=== PATIENT | female | born 1990 | race Caucasian/White ===

== ENCOUNTER 2018-11-11 22:34 | Emergency (ER) | payer BC ==
[2018-11-11] MEDS ORDERED: Ondansetron 4 MG/2 ML SDV IVPUSH ONE (23:25)
[2018-11-11] MEDS ORDERED: Lactated Ringers 1,000 ML IV ONE (23:25)
--- NOTE | 2018-11-11 23:30 | EDM.PDOC ---
ED HPI GENERAL MEDICAL PROBLEM - General Chief Complaint: Gastrointestinal Problem Stated Complaint: THROWING UP BLOOD Time Seen by Provider: 11/11/18 23:22 - History of Present Illness INITIAL COMMENTS - FREE TEXT/NARRATIVE: 38-year-old female presents emergency room at 34 weeks with some vomiting with vomitus contained some blood. Patient is a 1 para 0 now at 34 weeks she has been feeling ill since about 6:00 this evening a couple hours ago she vomited and it had some red streaking blood like material in it. She denies any abdominal pain or discomfort other than the discomfort associated with 34 week gestation. 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 Denies: Constipation, Diarrhea : Reports: Frequency. Denies: Discharge, Dysuria, Flank Pain, Hematuria Musculoskeletal: Reports: No Symptoms Skin: Reports: No Symptoms Neurological: Reports: No Symptoms ED EXAM - Physical Exam Exam: See Below General Appearance: Alert, No Apparent Distress Head: Atraumatic, Normocephalic Neck: Normal Inspection, Supple, Non-Tender, Full Range of Motion. No: Lymphadenopathy (L), Lymphadenopathy (R) Respiratory/Chest: No Respiratory Distress, Lungs Clear, Normal Breath Sounds Cardiovascular: Regular Rate, Rhythm, No Edema, No Murmur (Female) Exam: Other (OB nurse came down to do the monitoring also checked the cervix which is high long thick and closed.) Heart Tones: Present Movement: Active Extremities: Normal Inspection, No Pedal Edema Neurological: Alert, Oriented, Normal Cognition Course - Vital Signs Last Recorded V/S: Last Vital Signs Temp 36.3 C 11/11/18 22:35 Pulse 110 H 11/11/18 22:35 Resp 20 11/11/18 22:35 BP 109/67 11/11/18 22:35 Pulse Ox 100 11/11/18 22:35 - Orders/Labs/Meds Orders: Active Orders 24 hr Category Date Time Status INFLUENZA A+B AG SCREEN [RM] Stat Lab 11/12/18 00:22 Ordered URINALYSIS W/MICROSCOPIC [UA W/MICROSCOPIC] [URIN] Stat Lab 11/12/18 00:27 Results Labs: Laboratory Tests 11/11/18 11/11/18 11/12/18 Range/Units 22:56 22:56 00:27 WBC 10.51 H (3.98-10.04) K/mm3 RBC 4.20 (3.98-5.22) M/mm3 Hgb 12.3 (11.2-15.7) gm/L Hct 37.0 (34.1-44.9) % MCV 88.1 (79.4-94.8) fl MCH 29.3 (25.6-32.2) pg MCHC 33.2 (32.2-35.5) g/dl RDW Std Deviation 39.4 (36.4-46.3) fL Plt Count 193 (182-369) K/mm3 MPV 11.4 (9.4-12.3) fl Neutrophils % (Manual) 84 H (40-60) % Band Neutrophils % 0 (0-10) % Lymphocytes % (Manual) 9 L (20-40) % Atypical Lymphs % 0 % Monocytes % (Manual) 7 (2-10) % Eosinophils % (Manual) 0 L (0.7-5.8) % Basophils % (Manual) 0 L (0.1-1.2) Toxic Granulation 1+ slight Platelet Estimate Adequate Plt Morphology Comment Normal RBC Morph Comment Normal Sodium 138 (136-145) mEq/L Potassium 3.3 L (3.5-5.1) mEq/L Chloride 103 (98-107) mEq/L Carbon Dioxide 21 (21-32) mEq/L Anion Gap 17.3 H (5-15) BUN 12 (7-18) mg/dL Creatinine 0.7 (0.55-1.02) mg/dL Est Cr Clr Drug Dosing 117.39 mL/min Estimated GFR (MDRD) > 60 (>60) mL/min BUN/Creatinine Ratio 17.1 (14-18) Glucose 113 H (74-106) mg/dL Calcium 8.6 (8.5-10.1) mg/dL Total Bilirubin 0.2 (0.2-1.0) mg/dL AST 20 (15-37) U/L ALT 19 (14-59) U/L Alkaline Phosphatase 96 (46-116) U/L Total Protein 6.9 (6.4-8.2) g/dl Albumin 2.9 L (3.4-5.0) g/dl Globulin 4.0 gm/dL Albumin/Globulin Ratio 0.7 L (1-2) Urine Color Yellow (Yellow) Urine Appearance Clear (Clear) Urine pH 7.0 (5.0-8.0) Ur Specific [place] 1.025 (1.005-1.030) Urine Protein 1+ H (Negative) Urine Glucose (UA) Negative (Negative) Urine Ketones 4+ H (Negative) Urine Occult Blood Negative (Negative) Urine Nitrite Negative (Negative) Urine Bilirubin Negative (Negative) Urine Urobilinogen 0.2 (0.2-1.0) Ur Leukocyte Esterase Negative (Negative) Meds: Medications Discontinued Medications Generic Name Dose Route Start Last Admin Trade Name Freq PRN Reason Stop Dose Admin Lactated Ringer's 1,000 mls @ 999 mls/hr 11/11/18 23:25 11/11/18 23:31 Ringers, Lactated IV 11/12/18 00:25 999 mls/hr .BOLUS ONE Administration Ondansetron HCl 4 mg 11/11/18 23:25 11/11/18 23:32 Zofran IVPUSH 11/11/18 23:26 4 mg ONETIME ONE Administration Potassium Chloride 40 meq 11/12/18 00:15 11/12/18 00:26 Klor-Con M20 PO 11/12/18 00:16 40 meq ONETIME ONE Administration - Re-Assessments/Exams Free Text/Narrative Re-Assessment/Exam: 11/12/18 00:47 She was doing much better here than she was when she came in fluids help Zofran helps she's keeping by mouth fluids down without difficulty. She had a reactive NST. Case discussed with Dr. Godfrey patient will be discharged home with some Mikayla and will follow up with Dr. Stevens on Monday as scheduled. Departure - Departure Time of Disposition: 00:48 Disposition: Home, Self-Care 01 Clinical Impression: Gastroenteritis, Third trimester - Discharge Information Referrals: Hieu Stevens MD [Primary Care Provider] - Forms: ED Department Discharge Additional Instructions: Return to labor and delivery or the emergency room with any questions problems worsening symptoms. Uses Zofran as needed for nausea and vomiting. Clear liquid diet for the next 24 hours then slowly advance as tolerated. Follow-up with Dr. Stevens on Monday as scheduled. - My Orders Last 24 Hours: My Active Orders 11/12/18 00:22 INFLUENZA A+B AG SCREEN [RM] Stat 11/12/18 00:27 URINALYSIS W/MICROSCOPIC [UA W/MICROSCOPIC] [URIN] Stat - Assessment/Plan Last 24 Hours: My Active Orders 11/12/18 00:22 INFLUENZA A+B AG SCREEN [RM] Stat 11/12/18 00:27 URINALYSIS W/MICROSCOPIC [UA W/MICROSCOPIC] [URIN] Stat
[2018-11-12] MEDS ORDERED: Potassium Chloride 20 MEQ Tab.ER PO ONE (00:15)
== END 2018-11-12 01:02 | disposition home or self-care (01) ==
LOC: JD.ED 22:34
DX: O99.613 Diseases of the digestive system complicating pregnancy, third trimester (principal); K52.9 Noninfective gastroenteritis and colitis, unspecified; Z3A.34 34 weeks gestation of pregnancy
CPT/HCPCS: 36415; 59025; 80053; 81001; 85007; 85027; 87804; 96361; 96374; 99284; A9270; J2405; J7120

== ENCOUNTER 2018-12-16 01:13 | Inpatient (IN) | payer BC ==
[~2018-12-16 01:13] MED LIST: Bupivacaine 0.25% 10 ML SDV ONE
[2018-12-16] MEDS ORDERED: Nalbuphine 20 MG/ML 1 ML Syringe IVPUSH PRN (01:40)
[2018-12-16] MEDS ORDERED: Sodium Chloride 0.9% 10 ML Syringe FLUSH PRN (01:40)
[2018-12-16] MEDS ORDERED: Lactated Ringers 1,000 ML IV SCH (01:45)
[2018-12-16] MEDS ORDERED: Oxytocin/Lactated Ringers 10 UNIT/1,000 ML BAG IV SCH (01:45)
[2018-12-16] MEDS ORDERED: diphenhydrAMINE 50 MG/ML SDV IVPUSH PRN (02:42)
[2018-12-16] MEDS ORDERED: fentaNYL 100 MCG/2 ML SDV EPIDUR PRN (02:42)
[2018-12-16] MEDS ORDERED: Lidocaine 1% 50 ML MDV ONE (02:42)
[2018-12-16] MEDS ORDERED: Ondansetron 4 MG/2 ML SDV IVPUSH PRN (02:42)
[2018-12-16] MEDS ORDERED: ePHEDrine 50 MG/ML SDV IVPUSH PRN (02:42)
[2018-12-16] MEDS ORDERED: fentaNYL/Bupivacaine-NS 2 MCG/ML-0.125%/PF 100 ML Bag EP SCH (02:45)
--- NOTE | 2018-12-16 03:27 | PCM.LDHP ---
L&D History of Present Illness - General Date of Service: 12/16/18 Admit Problem/Dx: Patient Status Order with Admit Dx/Problem 12/16/18 01:43 Patient Status [ADT] Routine Admission Diagnosis/Problem Admission Diagnosis/Problem Source of Information: Patient History Limitations: Reports: No Limitations - History of Present Illness Introduction:: 28 y/o CLARK 12/24/18 at EGA 38w5d in active labor cervix by RN exam 4-5 cm and spontaneous rupture of membranes GBS negative. O positive. Labs see record Plan delivery. 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: 1; para 0; due date is Dec 24 - Past Surgical History HEENT Surgical History: Reports: Oral Surgery Social & Family History - Family History Family Medical History: Noncontributory - Caffeine Use Caffeine Use: Reports: Coffee H&P Review of Systems - Review of Systems: Review Of Systems: See Below General: Reports: No Symptoms HEENT: Reports: No Symptoms Pulmonary: Reports: No Symptoms Cardiovascular: Reports: No Symptoms Gastrointestinal: Reports: No Symptoms Genitourinary: Reports: No Symptoms Musculoskeletal: Reports: No Symptoms Skin: Reports: No Symptoms Psychiatric: Reports: No Symptoms Neurological: Reports: No Symptoms Hematologic/Lymphatic: Reports: No Symptoms Immunologic: Reports: No Symptoms L&D Exam - Exam Exam: See Below - Vital Signs Vital Signs: Last Vital Signs Temp 98.0 F 12/16/18 01:40 Pulse Resp 18 12/16/18 01:40 BP 116/75 12/16/18 01:40 Pulse Ox Weight: 178 lb - OB Specific Contraction Intensity: Moderate Movement: Active Heart Tones: Present Heart Tones per Min: 140 Heart Rate (FHR) Variability: Moderate (6-25 bmp) Presentation: Vertex - Barron Score Barron Score Cervix Position: Anterior Barron Score Consistency: Soft Barron Score Effacement: 51-70% Barron Score Dilation: > 5 cm Barron Score 's Station: -2 Barron Score Total: 10 - Exam General: Alert, Oriented HEENT: Conjunctiva Clear, Mucosa Moist & [place], PERRLA Neck: Supple, Trachea Midline Lungs: Clear to Auscultation, Normal Respiratory Effort Cardiovascular: Regular Rate, Regular Rhythm GI/Abdominal Exam: Normal Bowel Sounds, Soft, Non-Tender Genitourinary: Normal external exam Extremities: Normal Inspection, Normal Range of Motion, Non-Tender, No Pedal Edema, Normal Capillary Refill Skin: Warm, Dry, Intact Neurological: Reflexes Equal Bilateral Psychiatric: Alert, Normal Affect, Normal Mood - Patient Data Lab Results Last 24 hrs: Laboratory Results - last 24 hr 12/16/18 12/16/18 Range/Units 01:53 01:53 WBC 8.72 (3.98-10.04) K/mm3 RBC 4.10 (3.98-5.22) M/mm3 Hgb 11.8 (11.2-15.7) gm/L Hct 35.4 (34.1-44.9) % MCV 86.3 (79.4-94.8) fl MCH 28.8 (25.6-32.2) pg MCHC 33.3 (32.2-35.5) g/dl RDW Std Deviation 41.1 (36.4-46.3) fL Plt Count 204 (182-369) K/mm3 MPV 11.8 (9.4-12.3) fl Neut % (Auto) 82.3 H (34.0-71.1) % Lymph % (Auto) 12.8 L (19.3-51.7) % [place] % (Auto) 4.6 L (4.7-12.5) % Eos % (Auto) 0 L (0.7-5.8) Baso % (Auto) 0.1 (0.1-1.2) % Neut # (Auto) 7.17 H (1.56-6.13) K/mm3 Lymph # (Auto) 1.12 L (1.18-3.74) K/mm3 [place] # (Auto) 0.40 H (0.24-0.36) K/mm3 Eos # (Auto) 0.00 L (0.04-0.36) K/mm3 Baso # (Auto) 0.01 (0.01-0.08) K/mm3 Blood Type O POSITIVE Gel Antibody Screen Negative Result Diagrams: 12/16/18 01:53 - Problem List (1) 38 weeks gestation of SNOMED Code(s): 51832115 ICD Code: Z3A.38 - 38 WEEKS GESTATION OF Status: Acute Current Visit: No Problem List Initiated/Reviewed/Updated: No Orders Last 24hrs: Active Orders 24 hr Category Date Time Status Patient Status [ADT] Routine ADT 12/16/18 01:43 Active Activity as Tolerated [RC] PFP Care 12/16/18 01:43 Active Communication Order [RC] ASDIRECTED Care 12/16/18 01:43 Active Heart Tones [RC] ASDIRECTED Care 12/16/18 01:43 Active Non Stress Test [RC] PER UNIT ROUTINE Care 12/16/18 01:43 Active Notify Provider [RC] ASDIRECTED Care 12/16/18 02:41 Active Notify Provider [RC] PFP Care 12/16/18 01:43 Active Notify Provider [RC] PRN Care 12/16/18 01:43 Active Peripheral IV Care [RC] . DIRECTED Care 12/16/18 01:43 Active Vital Signs [RC] PER UNIT ROUTINE Care 12/16/18 01:43 Active Clear Liquid Diet [DIET] Diet 12/16/18 Breakfast Active RAPID PLASMA REAGIN,RPR [CHEM] Routine Lab 12/16/18 01:53 Received Lactated Ringers [Ringers, Lactated] 1,000 ml Med 12/16/18 01:45 Active IV ASDIRECTED Nalbuphine [Nubain] Med 12/16/18 01:40 Active 10 mg IVPUSH Q2H PRN Ondansetron [Zofran] Med 12/16/18 02:42 Active 4 mg IVPUSH ONETIME PRN Oxytocin/Lactated Ringers [Pitocin in LR 10 Units/1,000 Med 12/16/18 01:45 Active ML] 10 unit in 1,000 ml IV .CONTINUOUS Sodium Chloride 0.9% [Saline Flush] Med 12/16/18 01:40 Active 10 ml FLUSH ASDIRECTED PRN diphenhydrAMINE [Benadryl] Med 12/16/18 02:42 Active 25 mg IVPUSH Q6H PRN ePHEDrine [ePHEDrine sulfate] Med 12/16/18 02:42 Active 5 mg IVPUSH ASDIRECTED PRN fentaNYL [Sublimaze] Med 12/16/18 02:42 Active 100 mcg EPIDUR ONETIME PRN fentaNYL/Bupivacaine/NS/PF [jtknfJAX-Zmgkh-LM 2 MCG/ML- Med 12/16/18 02:45 Active 0.125%] 100 ml EP ASDIRECTED Electronic Heart Tones Ext w TOCO [WOMSER] Oth 12/16/18 01:43 Ordered Routine Electronic Heart Tones Internal [WOMSER] Per Unit Oth 12/16/18 01:43 Ordered Routine Peripheral IV Insertion Adult [OM.PC] Routine Oth 12/16/18 01:43 Ordered Resuscitation Status Routine Resus Stat 12/16/18 01:40 Ordered Medication Orders Diphenhydramine HCl (Benadryl) 25 mg IVPUSH Q6H PRN PRN Reason: Pruritis Ephedrine Sulfate (Ephedrine Sulfate) 5 mg IVPUSH ASDIRECTED PRN PRN Reason: Hypotension Fentanyl (Sublimaze) 100 mcg EPIDUR ONETIME PRN PRN Reason: Pain Fentanyl/Bupivacaine HCl (Gvfiomlq-Lmydk-Wa 2 Mcg/Ml-0.125%) 100 ml EP ASDIRECTED WEN Lactated Ringer's (Ringers, Lactated) 1,000 mls @ 100 mls/hr IV ASDIRECTED WEN Last Admin: 12/16/18 02:14 Dose: 100 mls/hr Oxytocin/Lactated Ringer's (Pitocin In Lr 10 Units/1,000 Ml) 10 unit in 1,000 mls @ 500 mls/hr IV .CONTINUOUS [facility] Nalbuphine HCl (Nubain) 10 mg IVPUSH Q2H PRN PRN Reason: pain Ondansetron HCl (Zofran) 4 mg IVPUSH ONETIME PRN PRN Reason: Nausea/Vomiting Sodium Chloride (Saline Flush) 10 ml FLUSH ASDIRECTED PRN PRN Reason: Keep Vein Open Assessment/Plan Comment:: Delivery planned
--- NOTE | 2018-12-16 03:51 | PCM.DEL ---
L & D Note - General Info Date of Service: 12/16/18 Mother's Due Date: 12/24/18 - Delivery Note Labor: Spontaneous Delivery Outcome: Livebirth [place] [address]/16/18 FERNANDO, nuchal cord x1 tight, reduced over hear, APGARS 7/8 weight 3750 g/8#4.3 oz) Delivery Method: Spontaneous Vaginal Delivery-Single Infant Delivery Mode: Spontaneous Presentation: Left Occiput Anterior (FERNANDO) Nuchal Cord: Present (tight), Reduced Prep: Povidone-Iodine (Betadine Anesthesia Type: None Episiotomy Type: None Laceration: 2nd Degree Suture type: Other (monocryl) Suture size: 3-0 (x1) Placenta: Intact, Spontaneous (32512/16/18) Cord: 3 Vessels Estimated Blood Loss: 250 Resuscitation Needed: No [place]: Suctioned, Bulb Syringe, Stimulated, Warmed, Votaw Used, Warmer Used Provider: Praveen Gonzales Score 1 min: 7 Score 5 min: 8 - General Info Date of Service: 12/16/18 Functional Status: Reports: Pain Controlled - Patient Data Vitals - Most Recent: Last Vital Signs Temp 98.0 F 12/16/18 01:40 Pulse Resp 18 12/16/18 01:40 BP 116/75 12/16/18 01:40 Pulse Ox Weight - Most Recent: 178 lb Lab Results Last 24 Hours: Laboratory Results - last 24 hr 12/16/18 12/16/18 Range/Units 01:53 01:53 WBC 8.72 (3.98-10.04) K/mm3 RBC 4.10 (3.98-5.22) M/mm3 Hgb 11.8 (11.2-15.7) gm/L Hct 35.4 (34.1-44.9) % MCV 86.3 (79.4-94.8) fl MCH 28.8 (25.6-32.2) pg MCHC 33.3 (32.2-35.5) g/dl RDW Std Deviation 41.1 (36.4-46.3) fL Plt Count 204 (182-369) K/mm3 MPV 11.8 (9.4-12.3) fl Neut % (Auto) 82.3 H (34.0-71.1) % Lymph % (Auto) 12.8 L (19.3-51.7) % [place] % (Auto) 4.6 L (4.7-12.5) % Eos % (Auto) 0 L (0.7-5.8) Baso % (Auto) 0.1 (0.1-1.2) % Neut # (Auto) 7.17 H (1.56-6.13) K/mm3 Lymph # (Auto) 1.12 L (1.18-3.74) K/mm3 [place] # (Auto) 0.40 H (0.24-0.36) K/mm3 Eos # (Auto) 0.00 L (0.04-0.36) K/mm3 Baso # (Auto) 0.01 (0.01-0.08) K/mm3 Blood Type O POSITIVE Gel Antibody Screen Negative Med Orders - Current: Current Medications Diphenhydramine HCl (Benadryl) 25 mg IVPUSH Q6H PRN PRN Reason: Pruritis Ephedrine Sulfate (Ephedrine Sulfate) 5 mg IVPUSH ASDIRECTED PRN PRN Reason: Hypotension Fentanyl (Sublimaze) 100 mcg EPIDUR ONETIME PRN PRN Reason: Pain Fentanyl/Bupivacaine HCl (Oeidibkm-Gubcy-Js 2 Mcg/Ml-0.125%) 100 ml EP ASDIRECTED WEN Lactated Ringer's (Ringers, Lactated) 1,000 mls @ 100 mls/hr IV ASDIRECTED WEN Last Admin: 12/16/18 02:14 Dose: 100 mls/hr Oxytocin/Lactated Ringer's (Pitocin In Lr 10 Units/1,000 Ml) 10 unit in 1,000 mls @ 500 mls/hr IV .CONTINUOUS [facility] Nalbuphine HCl (Nubain) 10 mg IVPUSH Q2H PRN PRN Reason: pain Ondansetron HCl (Zofran) 4 mg IVPUSH ONETIME PRN PRN Reason: Nausea/Vomiting Sodium Chloride (Saline Flush) 10 ml FLUSH ASDIRECTED PRN PRN Reason: Keep Vein Open Discontinued Medications Lidocaine HCl (Xylocaine 1%) Confirm Administered Dose 50 ml .ROUTE .STK-MED ONE Stop: 12/16/18 02:43 - Exam General: Alert, Oriented HEENT: Pupils Equal, Mucous Membr. Moist/[place] Neck: Supple (Female) Exam: Vaginal Tears (ML 2nd degree repaired) Extremities: Normal Inspection, Normal Range of Motion, Non-Tender, No Pedal Edema, Normal Capillary Refill Skin: Warm, Dry, Intact Psy/Mental Status: Alert, Normal Affect, Normal Mood - Problem List & Annotations (1) 38 weeks gestation of SNOMED Code(s): 00119144 Code(s): Z3A.38 - 38 WEEKS GESTATION OF Status: Acute Current Visit: No (2) Nuchal cord affecting delivery SNOMED Code(s): 961794662, 277022394 Code(s): O69.81X0 - LABOR AND DEL COMP BY CORD AROUND NECK, W/O COMPRSN, UNSP Status: Acute Current Visit: Yes (3) Second degree perineal laceration SNOMED Code(s): 6014705 Code(s): O70.1 - SECOND DEGREE PERINEAL LACERATION DURING DELIVERY Status: Acute Current Visit: Yes - Problem List Review Problem List Initiated/Reviewed/Updated: No - My Orders Last 24 Hours: My Active Orders 12/16/18 01:40 Nalbuphine [Nubain] 10 mg IVPUSH Q2H PRN Sodium Chloride 0.9% [Saline Flush] 10 ml FLUSH ASDIRECTED PRN Resuscitation Status Routine 12/16/18 01:43 Patient Status [ADT] Routine Activity as Tolerated [RC] PFP Communication Order [RC] ASDIRECTED Heart Tones [RC] ASDIRECTED Non Stress Test [RC] PER UNIT ROUTINE Notify Provider [RC] PFP Notify Provider [RC] PRN Peripheral IV Care [RC] . DIRECTED Vital Signs [RC] PER UNIT ROUTINE Electronic Heart Tones Ext w TOCO [WOMSER] Routine Electronic Heart Tones Internal [WOMSER] Per Unit Routine Peripheral IV Insertion Adult [OM.PC] Routine 12/16/18 01:45 Lactated Ringers [Ringers, Lactated] 1,000 ml IV ASDIRECTED Oxytocin/Lactated Ringers [Pitocin in LR 10 Units/1,000 ML] 10 unit in 1,000 ml IV .CONTINUOUS 12/16/18 01:53 RAPID PLASMA REAGIN,RPR [CHEM] Routine 12/16/18 Breakfast Clear Liquid Diet [DIET] - Plan Plan:: Delivery planned
[2018-12-16] MEDS ORDERED: Docusate Sodium 100 MG Cap PO PRN (03:54)
[2018-12-16] MEDS ORDERED: Witch Hazel Medicated Pads 100/Jar TOP PRN (03:54)
[2018-12-16] MEDS ORDERED: Benzocaine/Menthol 20%-0.5% Spray 56 GM Canister TOP PRN (03:54)
[2018-12-16] MEDS ORDERED: Lanolin 100% Cream 7 GM Tube TOP PRN (03:54)
[2018-12-16] MEDS ORDERED: Acetaminophen 325 MG Tab PO PRN (03:54)
[2018-12-16] MEDS: Ibuprofen 600 MG Tab PO PRN ×2 (11:21→17:04)
--- NOTE | 2018-12-17 08:36 | PCM.DCSUM1 ---
Discharge Summary - Hospital Course Free Text/Narrative:: [facility], [place], operated by [facility] LIVE L/D Delivery Note Patient Name: MIKAYLA CARRILLO Date of : 89 Patient Status: Inpatient Attending Provider: Praveen Gonzales Date: 12/16/18 03:46 Initialization Date: 12/16/18 03:46 L & D Note - General Info Date of Service: 12/16/18 Mother's Due Date: 12/24/18 - Delivery Note Labor: Spontaneous Delivery Outcome: Livebirth [place] [address]/16/18 FERNANDO, nuchal cord x1 tight, reduced over hear, APGARS 7/8 weight 3750 g/8#4.3 oz) Infant Delivery Method: Spontaneous Vaginal Delivery-Single Delivery Mode: Spontaneous Presentation: Left Occiput Anterior (FERNANDO) Nuchal Cord: Present (tight), Reduced Prep: Povidone-Iodine (Betadine Anesthesia Type: None Episiotomy Type: None Laceration: 2nd Degree Suture type: Other (monocryl) Suture size: 3-0 (x1) Placenta: Intact, Spontaneous (32512/16/18) Cord: 3 Vessels Estimated Blood Loss: 250 Resuscitation Needed: No [place]: Suctioned, Bulb Syringe, Stimulated, Warmed, [place] Used, Warmer Used Provider: Praveen Gonzales Score 1 min: 7 Score 5 min: 8 - General Info Date of Service: 12/16/18 Functional Status: Reports: Pain Controlled - Patient Data Vitals - Most Recent: Last Vital Signs Temp 98.0 F 12/16/18 01:40 Pulse Resp 18 12/16/18 01:40 BP 116/75 12/16/18 01:40 Pulse Ox Weight - Most Recent: 178 lb Lab Results Last 24 Hours: Laboratory Results - last 24 hr 12/16/18 12/16/18 Range/Units 01:53 01:53 WBC 8.72 (3.98-10.04) K/mm3 RBC 4.10 (3.98-5.22) M/mm3 Hgb 11.8 (11.2-15.7) gm/L Hct 35.4 (34.1-44.9) % MCV 86.3 (79.4-94.8) fl MCH 28.8 (25.6-32.2) pg MCHC 33.3 (32.2-35.5) g/dl RDW Std Deviation 41.1 (36.4-46.3) fL Plt Count 204 (182-369) K/mm3 MPV 11.8 (9.4-12.3) fl Neut % (Auto) 82.3 H (34.0-71.1) % Lymph % (Auto) 12.8 L (19.3-51.7) % Stanton % (Auto) 4.6 L (4.7-12.5) % Eos % (Auto) 0 L (0.7-5.8) Baso % (Auto) 0.1 (0.1-1.2) % Neut # (Auto) 7.17 H (1.56-6.13) K/mm3 Lymph # (Auto) 1.12 L (1.18-3.74) K/mm3 Stanton # (Auto) 0.40 H (0.24-0.36) K/mm3 Eos # (Auto) 0.00 L (0.04-0.36) K/mm3 Baso # (Auto) 0.01 (0.01-0.08) K/mm3 Blood Type O POSITIVE Gel Antibody Screen Negative Med Orders - Current: Current Medications Diphenhydramine HCl (Benadryl) 25 mg IVPUSH Q6H PRN PRN Reason: Pruritis Ephedrine Sulfate (Ephedrine Sulfate) 5 mg IVPUSH ASDIRECTED PRN PRN Reason: Hypotension Fentanyl (Sublimaze) 100 mcg EPIDUR ONETIME PRN PRN Reason: Pain Fentanyl/Bupivacaine HCl (Nlorqrze-Lekec-Na 2 Mcg/Ml-0.125%) 100 ml EP ASDIRECTED WEN Lactated Ringer's (Ringers, Lactated) 1,000 mls @ 100 mls/hr IV ASDIRECTED WEN Last Admin: 12/16/18 02:14 Dose: 100 mls/hr Oxytocin/Lactated Ringer's (Pitocin In Lr 10 Units/1,000 Ml) 10 unit in 1,000 mls @ 500 mls/hr IV .CONTINUOUS WEN Nalbuphine HCl (Nubain) 10 mg IVPUSH Q2H PRN PRN Reason: pain Ondansetron HCl (Zofran) 4 mg IVPUSH ONETIME PRN PRN Reason: Nausea/Vomiting Sodium Chloride (Saline Flush) 10 ml FLUSH ASDIRECTED PRN PRN Reason: Keep Vein Open Discontinued Medications Lidocaine HCl (Xylocaine 1%) Confirm Administered Dose 50 ml .ROUTE .STK-MED ONE Stop: 12/16/18 02:43 - Exam General: Alert, Oriented HEENT: Pupils Equal, Mucous Membr. Moist/Staples Neck: Supple (Female) Exam: Vaginal Tears (ML 2nd degree repaired) Extremities: Normal Inspection, Normal Range of Motion, Non-Tender, No Pedal Edema, Normal Capillary Refill Skin: Warm, Dry, Intact Psy/Mental Status: Alert, Normal Affect, Normal Mood - Problem List & Annotations (1) 38 weeks gestation of SNOMED Code(s): 55886974 Code(s): Z3A.38 - 38 WEEKS GESTATION OF Status: Acute Current Visit: No (2) Nuchal cord affecting delivery SNOMED Code(s): 107254647, 111616400 Code(s): O69.81X0 - LABOR AND DEL COMP BY CORD AROUND NECK, W/O COMPRSN, UNSP Status: Acute Current Visit: Yes (3) Second degree perineal laceration SNOMED Code(s): 5293246 Code(s): O70.1 - SECOND DEGREE PERINEAL LACERATION DURING DELIVERY Status: Acute Current Visit: Yes - Problem List Review Problem List Initiated/Reviewed/Updated: No - My Orders Last 24 Hours: My Active Orders 12/16/18 01:40 Nalbuphine [Nubain] 10 mg IVPUSH Q2H PRN Sodium Chloride 0.9% [Saline Flush] 10 ml FLUSH ASDIRECTED PRN Resuscitation Status Routine 12/16/18 01:43 Patient Status [ADT] Routine Activity as Tolerated [RC] PFP Communication Order [RC] ASDIRECTED Heart Tones [RC] ASDIRECTED Non Stress Test [RC] PER UNIT ROUTINE Notify Provider [RC] PFP Notify Provider [RC] PRN Peripheral IV Care [RC] . DIRECTED Vital Signs [RC] PER UNIT ROUTINE Electronic Heart Tones Ext w TOCO [WOMSER] Routine Electronic Heart Tones Internal [WOMSER] Per Unit Routine Peripheral IV Insertion Adult [OM.PC] Routine 12/16/18 01:45 Lactated Ringers [Ringers, Lactated] 1,000 ml IV ASDIRECTED Oxytocin/Lactated Ringers [Pitocin in LR 10 Units/1,000 ML] 10 unit in 1,000 ml IV .CONTINUOUS 12/16/18 01:53 RAPID PLASMA REAGIN,RPR [CHEM] Routine 12/16/18 Breakfast Clear Liquid Diet [DIET] - Plan Plan:: Delivery planned HPI Initial Comments: [facility], [place], operated by [facility] LIVE L/D Delivery Note Patient Name: MIKAYLA CARRILLO Date of : 89 Patient Status: Inpatient Attending Provider: Praveen Gonzales Date: 12/16/18 03:46 Initialization Date: 12/16/18 03:46 L & D Note - General Info Date of Service: 12/16/18 Mother's Due Date: 12/24/18 - Delivery Note Labor: Spontaneous Delivery Outcome: Livebirth ([place] [address]/16/18 FERNANDO, nuchal cord x1 tight, reduced over hear, APGARS 7/8 weight 3750 g/8#4.3 oz) Infant Delivery Method: Spontaneous Vaginal Delivery-Single Delivery Mode: Spontaneous Presentation: Left Occiput Anterior (FERNANDO) Nuchal Cord: Present (tight), Reduced Prep: Povidone-Iodine (Betadine Anesthesia Type: None Episiotomy Type: None Laceration: 2nd Degree Suture type: Other (monocryl) Suture size: 3-0 (x1) Placenta: Intact, Spontaneous (32512/16/18) Cord: 3 Vessels Estimated Blood Loss: 250 Resuscitation Needed: No : Suctioned, Bulb Syringe, Stimulated, Warmed, [place] Used, Warmer Used Provider: Praveen Gonzales Score 1 min: 7 Score 5 min: 8 - General Info Date of Service: 12/16/18 Functional Status: Reports: Pain Controlled - Patient Data Vitals - Most Recent: Last Vital Signs Temp 98.0 F 12/16/18 01:40 Pulse Resp 18 12/16/18 01:40 BP 116/75 12/16/18 01:40 Pulse Ox Weight - Most Recent: 178 lb Lab Results Last 24 Hours: Laboratory Results - last 24 hr 12/16/18 12/16/18 Range/Units 01:53 01:53 WBC 8.72 (3.98-10.04) K/mm3 RBC 4.10 (3.98-5.22) M/mm3 Hgb 11.8 (11.2-15.7) gm/L Hct 35.4 (34.1-44.9) % MCV 86.3 (79.4-94.8) fl MCH 28.8 (25.6-32.2) pg MCHC 33.3 (32.2-35.5) g/dl RDW Std Deviation 41.1 (36.4-46.3) fL Plt Count 204 (182-369) K/mm3 MPV 11.8 (9.4-12.3) fl Neut % (Auto) 82.3 H (34.0-71.1) % Lymph % (Auto) 12.8 L (19.3-51.7) % Stanton % (Auto) 4.6 L (4.7-12.5) % Eos % (Auto) 0 L (0.7-5.8) Baso % (Auto) 0.1 (0.1-1.2) % Neut # (Auto) 7.17 H (1.56-6.13) K/mm3 Lymph # (Auto) 1.12 L (1.18-3.74) K/mm3 Stanton # (Auto) 0.40 H (0.24-0.36) K/mm3 Eos # (Auto) 0.00 L (0.04-0.36) K/mm3 Baso # (Auto) 0.01 (0.01-0.08) K/mm3 Blood Type O POSITIVE Gel Antibody Screen Negative Med Orders - Current: Current Medications Diphenhydramine HCl (Benadryl) 25 mg IVPUSH Q6H PRN PRN Reason: Pruritis Ephedrine Sulfate (Ephedrine Sulfate) 5 mg IVPUSH ASDIRECTED PRN PRN Reason: Hypotension Fentanyl (Sublimaze) 100 mcg EPIDUR ONETIME PRN PRN Reason: Pain Fentanyl/Bupivacaine HCl (Itzweryb-Iovxl-Vi 2 Mcg/Ml-0.125%) 100 ml EP ASDIRECTED WEN Lactated Ringer's (Ringers, Lactated) 1,000 mls @ 100 mls/hr IV ASDIRECTED WEN Last Admin: 12/16/18 02:14 Dose: 100 mls/hr Oxytocin/Lactated Ringer's (Pitocin In Lr 10 Units/1,000 Ml) 10 unit in 1,000 mls @ 500 mls/hr IV .CONTINUOUS WEN Nalbuphine HCl (Nubain) 10 mg IVPUSH Q2H PRN PRN Reason: pain Ondansetron HCl (Zofran) 4 mg IVPUSH ONETIME PRN PRN Reason: Nausea/Vomiting Sodium Chloride (Saline Flush) 10 ml FLUSH ASDIRECTED PRN PRN Reason: Keep Vein Open Discontinued Medications Lidocaine HCl (Xylocaine 1%) Confirm Administered Dose 50 ml .ROUTE .STK-MED ONE Stop: 12/16/18 02:43 - Exam General: Alert, Oriented HEENT: Pupils Equal, Mucous Membr. Moist/Staples Neck: Supple (Female) Exam: Vaginal Tears (ML 2nd degree repaired) Extremities: Normal Inspection, Normal Range of Motion, Non-Tender, No Pedal Edema, Normal Capillary Refill Skin: Warm, Dry, Intact Psy/Mental Status: Alert, Normal Affect, Normal Mood - Problem List & Annotations (1) 38 weeks gestation of SNOMED Code(s): 91818217 Code(s): Z3A.38 - 38 WEEKS GESTATION OF Status: Acute Current Visit: No (2) Nuchal cord affecting delivery SNOMED Code(s): 801518383, 256237319 Code(s): O69.81X0 - LABOR AND DEL COMP BY CORD AROUND NECK, W/O COMPRSN, UNSP Status: Acute Current Visit: Yes (3) Second degree perineal laceration SNOMED Code(s): 0635197 Code(s): O70.1 - SECOND DEGREE PERINEAL LACERATION DURING DELIVERY Status: Acute Current Visit: Yes - Problem List Review Problem List Initiated/Reviewed/Updated: No - My Orders Last 24 Hours: My Active Orders 12/16/18 01:40 Nalbuphine [Nubain] 10 mg IVPUSH Q2H PRN Sodium Chloride 0.9% [Saline Flush] 10 ml FLUSH ASDIRECTED PRN Resuscitation Status Routine 12/16/18 01:43 Patient Status [ADT] Routine Activity as Tolerated [RC] PFP Communication Order [RC] ASDIRECTED Heart Tones [RC] ASDIRECTED Non Stress Test [RC] PER UNIT ROUTINE Notify Provider [RC] PFP Notify Provider [RC] PRN Peripheral IV Care [RC] . DIRECTED Vital Signs [RC] PER UNIT ROUTINE Electronic Heart Tones Ext w TOCO [WOMSER] Routine Electronic Heart Tones Internal [WOMSER] Per Unit Routine Peripheral IV Insertion Adult [OM.PC] Routine 12/16/18 01:45 Lactated Ringers [Ringers, Lactated] 1,000 ml IV ASDIRECTED Oxytocin/Lactated Ringers [Pitocin in LR 10 Units/1,000 ML] 10 unit in 1,000 ml IV .CONTINUOUS 12/16/18 01:53 RAPID PLASMA REAGIN,RPR [CHEM] Routine 12/16/18 Breakfast Clear Liquid Diet [DIET] - Plan Plan:: Delivery planned Brief History: [facility], [place], operated by [facility] LIVE . L/D [facility]. [id number]. Date of : [birth year]Patient Status: Inpatient. Attending Provider: Praveen Gonzales Number: [id number]. Date: 12/16/18 03:46Initialization Date: 12/16/18 03:46. L & D Note. - General Info. Date of Service: 12/16/18. Mother's Due Date: 12/24/18. - Delivery Note. Labor: Spontaneous. Delivery Outcome: Livebirth ( [place] [address]/16/18 FERNANDO, nuchal cord x1 tight, reduced over hear, APGARS 7/8 weight 3750 g/8#4.3 oz). Infant Delivery Method: Spontaneous Vaginal Delivery-Single. Delivery Mode: Spontaneous. Presentation : Left Occiput Anterior (FERNANDO). Nuchal Cord: Present (tight), Reduced. Prep: Povidone-Iodine (Betadine. Anesthesia Type: None. Episiotomy Type: None. Laceration: 2nd Degree. Suture type: Other (monocryl). Suture size: 3-0 (x1). Placenta: Intact, Spontaneous (32512/16/18). Cord: 3 Vessels. Estimated Blood Loss: 250. Resuscitation Needed: No. : Suctioned, Bulb Syringe, Stimulated, Warmed, [place] Used, Warmer Used. Provider: Praveen Gonzales. Score 1 min: 7. Score 5 min: 8. - General Info. Date of Service: 12/16/18. Functional Status: Reports: Pain Controlled. - Patient Data. Vitals - Most Recent: Last Vital Signs. Temp 98.0 F 01:40. Pulse. Resp 18 12/16/18 01:40. BP 116/75 12/16/18 01:40. Pulse Ox. Weight - Most Recent: 178 lb. Lab Results Last 24 Hours: Laboratory Results - last 24 hr. 12/16/1901Range/Units. 01:5301:53. WBC 8.72 (3.98 -10.04) K/mm3. RBC 4.10 (3.98-5.22) M/mm3. Hgb 11.8 (11.2-15.7) gm/L. Hct 35.4 (34.1-44.9) %. MCV 86.3 (79.4-94.8) fl. MCH 28.8 (25.6-32.2) pg. MCHC 33.3 (32.2-35.5) g/dl. RDW Std Deviation 41.1 (36.4-46.3) fL. Plt Count 204 (182-369) K/mm3. MPV 11.8 (9.4-12.3) fl. Neut % (Auto) 82.3 H ( 34.0-71.1) %. Lymph % (Auto) 12.8 L (19.3-51.7) %. Stanton % (Auto) 4.6 L (4.7- 12.5) %. Eos % (Auto) 0 L (0.7-5.8). Baso % (Auto) 0.1 (0.1-1.2) %. Neut # (Auto) 7.17 H (1.56-6.13) K/mm3. Lymph # (Auto) 1.12 L (1.18-3.74) K/mm3. Stanton # (Auto) 0.40 H (0.24-0.36) K/mm3. Eos # (Auto) 0.00 L (0.04-0.36) K/ mm3. Baso # (Auto) 0.01 (0.01-0.08) K/mm3. Blood Type O POSITIVE. Gel Antibody Screen Negative. Med Orders - Current: Current Medications. Diphenhydramine HCl (Benadryl) 25 mg IVPUSH Q6H PRN. PRN Reason: Pruritis. Ephedrine Sulfate (Ephedrine Sulfate) 5 mg IVPUSH ASDIRECTED PRN. PRN Reason: Hypotension. Fentanyl (Sublimaze) 100 mcg EPIDUR ONETIME PRN. PRN Reason: Pain. Fentanyl/Bupivacaine HCl (Wcbzarko-Wdbvo-Cj 2 Mcg/Ml-0.125%) 100 ml EP ASDIRECTED WEN. Lactated Ringer's (Ringers, Lactated) 1,000 mls @ 100 mls/hr IV ASDIRECTED WEN. Last Admin: 12/16/18 02:14 Dose: 100 mls/hr. Oxytocin/ Lactated Ringer's (Pitocin In Lr 10 Units/1,000 Ml) 10 unit in 1,000 mls @ 500 mls/hr IV .CONTINUOUS WEN. Nalbuphine HCl (Nubain) 10 mg IVPUSH Q2H PRN. PRN Reason: pain. Ondansetron HCl (Zofran) 4 mg IVPUSH ONETIME PRN. PRN Reason: Nausea/Vomiting. Sodium Chloride (Saline Flush) 10 ml FLUSH ASDIRECTED PRN. PRN Reason: Keep Vein Open. Discontinued Medications. Lidocaine HCl ( Xylocaine 1%) Confirm Administered Dose 50 ml .ROUTE .STK-MED ONE. Stop: 02:43. - Exam. General: Alert, Oriented. HEENT: Pupils Equal, Mucous Membr. Moist/Staples. Neck: Supple. (Female) Exam: Vaginal Tears (ML 2nd degree repaired). Extremities: Normal Inspection, Normal Range of Motion, Non- Tender, No Pedal Edema, Normal Capillary Refill. Skin: Warm, Dry, Intact. Psy/ Mental Status: Alert, Normal Affect, Normal Mood. - Problem List & Annotations. (1) 38 weeks gestation of . SNOMED Code(s): 79902757. Code(s): Z3A.38 - 38 WEEKS GESTATION OF Status: Acute Current Visit: No. (2) Nuchal cord affecting delivery. SNOMED Code(s): 210934271, 227740037. Code(s): O69.81X0 - LABOR AND DEL COMP BY CORD AROUND NECK, W/O COMPRSN, UNSP Status: Acute Current Visit: Yes. (3) Second degree perineal laceration. SNOMED Code(s): 0718910. Code(s): O70.1 - SECOND DEGREE PERINEAL LACERATION DURING DELIVERY Status: Acute Current Visit: Yes. - Problem List Review. Problem List Initiated/Reviewed/Updated: No. - My Orders. Last 24 Hours: My Active Orders. 12/16/18 01:40. Nalbuphine [Nubain] 10 mg IVPUSH Q2H PRN. Sodium Chloride 0.9% [Saline Flush] 10 ml FLUSH ASDIRECTED PRN. Resuscitation Status Routine. 12/16/18 01:43. Patient Status [ADT] Routine. Activity as Tolerated [RC] PFP. Communication Order [RC] ASDIRECTED. Heart Tones [RC] ASDIRECTED. Non Stress Test [RC] PER UNIT ROUTINE. Notify Provider [RC] PFP. Notify Provider [RC] PRN. Peripheral IV Care [RC] . DIRECTED. Vital Signs [RC] PER UNIT ROUTINE. Electronic Heart Tones Ext w TOCO [WOMSER] Routine. Electronic Heart Tones Internal [WOMSER] Per Unit Routine. Peripheral IV Insertion Adult [OM.PC] Routine. 08/24 01:45. Lactated Ringers [Ringers, Lactated] 1,000 ml IV ASDIRECTED. Oxytocin/Lactated Ringers [Pitocin in LR 10 Units/1,000 ML] 10 unit in 1,000 ml IV .CONTINUOUS. 12/16/18 01:53. RAPID PLASMA REAGIN,RPR [CHEM] Routine. 12/16 Breakfast. Clear Liquid Diet [DIET]. - Plan. Plan:: Delivery planned Diagnosis: Stroke: No - Discharge Data Discharge Date: 12/17/18 Discharge Disposition: Home, Self-Care 01 Condition: Good - Discharge Diagnosis/Problem(s) (1) 38 weeks gestation of SNOMED Code(s): 32270450 ICD Code: Z3A.38 - 38 WEEKS GESTATION OF Status: Acute Current Visit: No (2) Nuchal cord affecting delivery SNOMED Code(s): 490769310, 794774847 ICD Code: O69.81X0 - LABOR AND DEL COMP BY CORD AROUND NECK, W/O COMPRSN, UNSP Status: Acute Current Visit: Yes (3) Second degree perineal laceration SNOMED Code(s): 6263351 ICD Code: O70.1 - SECOND DEGREE PERINEAL LACERATION DURING DELIVERY Status : Acute Current Visit: Yes - Patient Summary/Data Complications: none Consults: none Hospital Course: uneventful - Patient Instructions Diet: Usual Diet as Tolerated Driving: Do Not Drive (x48 hrs) Showering/Bathing: May Shower Notify Provider of: Fever, Increased Pain, Swelling and Redness, Drainage, Nausea and/or Vomiting - Discharge Plan *PRESCRIPTION DRUG MONITORING PROGRAM REVIEWED*: Not Applicable *COPY OF PRESCRIPTION DRUG MONITORING REPORT IN PATIENT ALEJANDRA: Not Applicable Prescriptions/Med Rec: Acetaminophen 325 mg PO Q6H #50 capsule Docusate Sodium [Dulcolax Stool Softener] 100 mg PO BID #50 capsule Ibuprofen 200 - 600 mg PO Q6H #50 tablet Home Medications: Home Meds PNV95/Ferrous Fumarate/FA [ Tablet] 1 tab PO DAILY 11/11/18 [History] Acetaminophen 325 mg PO Q6H #50 capsule 12/17/18 [Rx] Benzocaine/Menthol [Dermoplast Pain Relief [place]] 1 spray TOP ASDIRECTED PRN canister 12/17/18 [Rx] Docusate Sodium [Dulcolax Stool Softener] 100 mg PO BID #50 capsule 12/17/18 [Rx ] Ibuprofen 200 - 600 mg PO Q6H #50 tablet 12/17/18 [Rx] Lanolin [Lansinoh HPA] 1 applic TOP ASDIRECTED PRN tube 12/17/18 [Rx] Witch Che [Tucks] 1 pad TOP ASDIRECTED PRN pad 12/17/18 [Rx] Referrals: Hieu Stevens MD [Primary Care Provider] - (2 weeks) - Discharge Summary/Plan Comment DC Time >30 min.: No - Patient Data Vitals - Most Recent: Last Vital Signs Temp 98.1 F 12/17/18 06:39 Pulse 75 12/17/18 06:39 Resp 16 12/17/18 06:39 BP 103/63 12/17/18 06:39 Pulse Ox 98 12/17/18 06:39 Weight - Most Recent: 178 lb Lab Results - Last 24 hrs: Laboratory Results - last 24 hr 12/16/18 Range/Units 01:53 RPR Non-reactive (NONREACTIVE) Med Orders - Current: Current Medications Acetaminophen (Tylenol) 650 mg PO Q4H PRN PRN Reason: mild pain or fever Benzocaine/Menthol (Dermoplast Pain Relief [place]) 0 gm TOP ASDIRECTED PRN PRN Reason: Perineal Comfort Measure Docusate Sodium (Colace) 100 mg PO BID PRN PRN Reason: Constipation Last Admin: 12/16/18 17:04 Dose: 100 mg Emollient Ointment (Lansinoh Hpa) 0 gm TOP ASDIRECTED PRN PRN Reason: Sore Nipples Ibuprofen (Motrin) 600 mg PO Q4H PRN PRN Reason: Mild pain or fever Last Admin: 12/16/18 17:04 Dose: 600 mg Witch Che (Tucks) 1 pad TOP ASDIRECTED PRN PRN Reason: Hemorrhoid pain Discontinued Medications Diphenhydramine HCl (Benadryl) 25 mg IVPUSH Q6H PRN PRN Reason: Pruritis Ephedrine Sulfate (Ephedrine Sulfate) 5 mg IVPUSH ASDIRECTED PRN PRN Reason: Hypotension Fentanyl (Sublimaze) 100 mcg EPIDUR ONETIME PRN PRN Reason: Pain Fentanyl/Bupivacaine HCl (Vklghgnr-Wgtrl-Ws 2 Mcg/Ml-0.125%) 100 ml EP ASDIRECTED WEN Lactated Ringer's (Ringers, Lactated) 1,000 mls @ 100 mls/hr IV ASDIRECTED WEN Last Admin: 12/16/18 02:14 Dose: 100 mls/hr Oxytocin/Lactated Ringer's (Pitocin In Lr 10 Units/1,000 Ml) 10 unit in 1,000 mls @ 500 mls/hr IV .CONTINUOUS WEN Last Admin: 12/16/18 04:03 Dose: 500 mls/hr Lidocaine HCl (Xylocaine 1%) Confirm Administered Dose 50 ml .ROUTE .STK-MED ONE Stop: 12/16/18 02:43 Last Admin: 12/16/18 06:15 Dose: 50 ml Nalbuphine HCl (Nubain) 10 mg IVPUSH Q2H PRN PRN Reason: pain Ondansetron HCl (Zofran) 4 mg IVPUSH ONETIME PRN PRN Reason: Nausea/Vomiting Sodium Chloride (Saline Flush) 10 ml FLUSH ASDIRECTED PRN PRN Reason: Keep Vein Open
== END 2018-12-17 11:50 | disposition home or self-care (01) | DRG 560 ==
LOC: JD.OB 01:13 → JD.OBCHECK 01:13 → JD.OB 01:43 → OBSVTOIN 03:22 → JD.OB 03:22
PROVIDERS: ADMIT Obstetrics & Gynecology; ATTEND Obstetrics & Gynecology
PROC: 10E0XZZ Delivery of Products of Conception, External Approach (ICD-10-PCS; principal; 2018-12-16)
PROC: 0KQM0ZZ Repair Perineum Muscle, Open Approach (ICD-10-PCS; principal; 2018-12-16)
DX: O69.1XX0 Labor and delivery complicated by cord around neck, with compression, not applicable or unspecified (principal); O70.1 Second degree perineal laceration during delivery; Z37.0 Single live birth; Z3A.38 38 weeks gestation of pregnancy
CPT/HCPCS: 36415; 59025; 59409; 85025; 86592; 86850; 86900; 86901; A9270-GY; J2590; J3490; J7120

== ENCOUNTER 2021-01-23 09:52 | Inpatient (IN) | payer BC ==
[2021-01-23] MEDS ORDERED: Sodium Chloride 0.9% 10 ML Syringe FLUSH PRN ×2 (10:24→13:24)
[2021-01-23] MEDS ORDERED: Nalbuphine 10 MG/1 ML Vial IVPUSH PRN (10:24)
[2021-01-23] MEDS ORDERED: Ondansetron 4 MG/2 ML SDV IVPUSH PRN (10:24)
[2021-01-23] MEDS ORDERED: Calcium Carbonate 500 MG Tab.Chew PO PRN (10:24)
[2021-01-23] MEDS ORDERED: Oxytocin/Lactated Ringers 20 UNIT/1,000 ML BAG IV SCH (10:30)
[2021-01-23] MEDS ORDERED: Lactated Ringers 1,000 ML IV SCH (10:30)
--- NOTE | 2021-01-23 10:54 | PCM.LDHP ---
L&D History of Present Illness - General Date of Service: 01/23/21 Admit Problem/Dx: Patient Status Order with Admit Dx/Problem 01/23/21 10:05 Patient Status [ADT] Routine 01/23/21 10:24 Patient Status [ADT] Routine Admission Diagnosis/Problem Admission Diagnosis/Problem Source of Information: Patient History Limitations: Reports: No Limitations - History of Present Illness Introduction:: 30-year-old -0-0-1 [place] 01/23/2021 estimated gestational age 40 weeks 0 days. Patient presented to labor delivery complaining of contractions every 3 to 5 minutes cervix 3 to 4 cm dilated 80% effaced soft posterior -1 station vertex amniotomy performed at 10:42 AM clear fluid heart tones category 1 before and after amniotomy. 07/01/2020 blood type O+, antibody screen negative, hemoglobin/hematocrit 13.2 39.5, platelets 266,000, rubella immune, serology nonreactive, urine culture mixed mike suggestive of contamination, hepatitis B surface antigen negative, HIV negative, chlamydia probe negative. 10/28/2020 hemoglobin/hematocrit 10.8/3.6, platelets 225,000, 1 hour OB glucose screen 82. RPR nonreactive. 01/04/2021 group B strep negative. Plan delivery. Improves with: Reports: None Worsens with: Reports: None Associated Symptoms: Reports: N - Related Data Allergies/Adverse Reactions: Allergies Allergy/AdvReac Type Severity Reaction Status Date / Time No Known Allergies Allergy Verified 01/23/21 10:05 Home Medications: Home Meds Pnv No.95/Ferrous Fum/Folic AC [ Tablet] 1 tab PO DAILY 11/11/18 [History] Past Medical History HEENT History: Reports: None [employer] History: Reports: Other OB/BYN History: 1; para 0; due date is Dec 24 - Past Surgical History HEENT Surgical History: Reports: Oral Surgery Social & Family History - Family History Family Medical History: No Pertinent Family History - Caffeine Use Caffeine Use: Reports: Coffee H&P Review of Systems - Review of Systems: Review Of Systems: See Below General: Reports: No Symptoms HEENT: Reports: No Symptoms Pulmonary: Reports: No Symptoms Cardiovascular: Reports: No Symptoms Gastrointestinal: Reports: No Symptoms Genitourinary: Reports: No Symptoms Musculoskeletal: Reports: No Symptoms Skin: Reports: No Symptoms Psychiatric: Reports: No Symptoms Neurological: Reports: No Symptoms Hematologic/Lymphatic: Reports: No Symptoms Immunologic: Reports: No Symptoms L&D Exam - Exam Exam: See Below - Vital Signs Weight: 168 lb - OB Specific Fundal Height In cm: 40 Contraction Duration (sec): 60 Contraction Frequency (min): 3-5 Contraction Intensity: Mild to Moderate Movement: Active Heart Tones: Present Heart Tones per Min: 140 Heart Rate (FHR) Variability: Moderate (6-25 bmp) Presentation: Vertex - Barron Score Barron Score Cervix Position: Posterior Barron Score Consistency: Soft Barron Score Effacement: >80% Barron Score Dilation: 3-4 cm - Exam General: Alert, Oriented HEENT: Conjunctiva Clear, Mucosa Moist & [place] Neck: Supple, Trachea Midline Lungs: Clear to Auscultation, Normal Respiratory Effort Cardiovascular: Regular Rate, Regular Rhythm GI/Abdominal Exam: Normal Bowel Sounds, Soft Genitourinary: Normal external exam Extremities: Normal Inspection, Non-Tender, No Pedal Edema, Normal Capillary Refill Skin: Warm, Dry, Intact Psychiatric: Alert, Normal Affect, Normal Mood - Patient Data Lab Results Last 24 hrs: Laboratory Results - last 24 hr 01/23/21 Range/Units 10:30 WBC 6.97 (3.98-10.04) K/mm3 RBC 4.52 (3.98-5.22) M/mm3 Hgb 13.5 D (11.2-15.7) gm/dl Hct 40.2 (34.1-44.9) % MCV 88.9 (79.4-94.8) fl MCH 29.9 (25.6-32.2) pg MCHC 33.6 (32.2-35.5) g/dl RDW Std Deviation 46.4 H (36.4-46.3) fL Plt Count 166 L (182-369) K/mm3 MPV 11.3 (9.4-12.3) fl Neut % (Auto) 72.3 H (34.0-71.1) % Lymph % (Auto) 20.1 (19.3-51.7) % [place] % (Auto) 6.9 (4.7-12.5) % Eos % (Auto) 0.3 L (0.7-5.8) Baso % (Auto) 0.3 (0.1-1.2) % Neut # (Auto) 5.04 (1.56-6.13) K/mm3 Lymph # (Auto) 1.40 (1.18-3.74) K/mm3 [place] # (Auto) 0.48 H (0.24-0.36) K/mm3 Eos # (Auto) 0.02 L (0.04-0.36) K/mm3 Baso # (Auto) 0.02 (0.01-0.08) K/mm3 Result Diagrams: 01/23/21 10:30 - Problem List (1) 40 weeks gestation of SNOMED Code(s): 17551763 ICD Code: Z3A.40 - 40 WEEKS GESTATION OF Status: Acute Current Visit: Yes Problem List Initiated/Reviewed/Updated: No Orders Last 24hrs: Active Orders 24 hr Category Date Time Status Patient Status [ADT] Routine ADT 01/23/21 10:24 Active Activity as Tolerated [RC] PFP Care 01/23/21 10:24 Active Communication Order [RC] ASDIRECTED Care 01/23/21 10:24 Active Heart Tones [RC] ASDIRECTED Care 01/23/21 10:24 Active Non Stress Test [RC] PER UNIT ROUTINE Care 01/23/21 10:05 Active Notify Provider [RC] PFP Care 01/23/21 10:24 Active Notify Provider [RC] PRN Care 01/23/21 10:24 Active Peripheral IV Care [RC] . DIRECTED Care 01/23/21 10:24 Active Vital Signs [RC] PER UNIT ROUTINE Care 01/23/21 10:05 Active Regular Diet [DIET] Diet 01/23/21 Lunch Active BLOOD BANK HOLD SPECIMEN [BBK] Stat Lab 01/23/21 10:24 Ordered CORONAVIRUS COVID-19 MARIA L [MOLEC] Stat Lab 01/23/21 10:22 Received RAPID PLASMA REAGIN,RPR [CHEM] Routine Lab 01/23/21 10:30 Received Calcium Carbonate [Tums] Med 01/23/21 10:24 Active 1,000 mg PO Q2H PRN Lactated Ringers [Ringers, Lactated] 1,000 ml Med 01/23/21 10:30 Active IV ASDIRECTED Nalbuphine [Nubain] Med 01/23/21 10:24 Active 10 mg IVPUSH Q2H PRN Ondansetron [Zofran] Med 01/23/21 10:24 Active 4 mg IVPUSH Q4H PRN Oxytocin/Lactated Ringers [Pitocin in LR 20 Units/1,000 Med 01/23/21 10:30 Active ML] 20 unit in 1,000 ml IV .CONTINUOUS Sodium Chloride 0.9% [Saline Flush] Med 01/23/21 10:24 Active 10 ml FLUSH ASDIRECTED PRN Electronic Heart Tones Ext w TOCO [WOMSER] Oth 01/23/21 10:24 Ordered Routine Electronic Heart Tones Internal [WOMSER] Per Unit Oth 01/23/21 10:24 Ordered Routine Peripheral IV Insertion Adult [OM.PC] Routine Oth 01/23/21 10:24 Ordered Resuscitation Status Routine Resus Stat 01/23/21 10:05 Ordered Medication Orders Calcium Carbonate/Glycine (Calcium Carbonate 500 Mg Tab.Chew) 1,000 mg PO Q2H PRN PRN Reason: Indigestion Lactated Ringer's (Ringers, Lactated) 1,000 mls @ 100 mls/hr IV ASDIRECTED WEN Oxytocin/Lactated Ringer's (Pitocin In Lr 20 Units/1,000 Ml) 20 unit in 1,000 mls @ 500 mls/hr IV .CONTINUOUS WEN Nalbuphine HCl (Nalbuphine 10 Mg/1 Ml Vial) 10 mg IVPUSH Q2H PRN PRN Reason: Pain Ondansetron HCl (Ondansetron 4 Mg/2 Ml Sdv) 4 mg IVPUSH Q4H PRN PRN Reason: Nausea/Vomiting Sodium Chloride (Sodium Chloride 0.9% 10 Ml Syringe) 10 ml FLUSH ASDIRECTED PRN PRN Reason: Keep Vein Open
--- NOTE | 2021-01-23 13:21 | PCM.DEL ---
L & D Note - General Info Date of Service: 01/23/21 Mother's Due Date: 01/23/21 - Delivery Note Labor: Spontaneous, Augmented by ARM Delivery Outcome: Livebirth (Female liveborn 01/23/2021 at 1303 hrs. weight 3380 g / 7 pounds 7.2 ounces 8/9 FLORA three-vessel cord) Infant Delivery Method: Spontaneous Vaginal Delivery-Single Delivery Mode: Spontaneous Presentation: Right Occiput Anterior (FLORA) Nuchal Cord: None Prep: Povidone-Iodine (Betadine Anesthesia Type: None Episiotomy Type: None Laceration: None Placenta: Intact, Spontaneous (01/23/2021 at 1307 hrs. examined placenta membranes and placenta intact) Cord: 3 Vessels Estimated Blood Loss: 250 Resuscitation Needed: Yes Provider: Praveen Gonzales Score 1 min: 8 Score 5 min: 9 Induction Criteria - Augmentation Estimated Pelvis: Reports: Adequate Weight Estimated:: Reports: AGA Reassuring Monitoring Strip: Yes Absence of Tachy Systole: Yes - General Info Date of Service: 01/23/21 Functional Status: Reports: Pain Controlled - Review of Systems General: Reports: No Symptoms HEENT: Reports: No Symptoms Pulmonary: Reports: No Symptoms Cardiovascular: Reports: No Symptoms Gastrointestinal: Reports: No Symptoms Genitourinary: Reports: No Symptoms Musculoskeletal: Reports: No Symptoms Skin: Reports: No Symptoms Neurological: Reports: No Symptoms Psychiatric: Reports: No Symptoms - Patient Data Vitals - Most Recent: Last Vital Signs Temp 98.2 F 01/23/21 10:05 Pulse 102 H 01/23/21 10:05 Resp 14 01/23/21 10:05 BP 120/84 01/23/21 10:05 Pulse Ox 100 01/23/21 10:05 Weight - Most Recent: 168 lb Lab Results Last 24 Hours: Laboratory Results - last 24 hr 01/23/21 01/23/21 Range/Units 10:22 10:30 WBC 6.97 (3.98-10.04) K/mm3 RBC 4.52 (3.98-5.22) M/mm3 Hgb 13.5 D (11.2-15.7) gm/dl Hct 40.2 (34.1-44.9) % MCV 88.9 (79.4-94.8) fl MCH 29.9 (25.6-32.2) pg MCHC 33.6 (32.2-35.5) g/dl RDW Std Deviation 46.4 H (36.4-46.3) fL Plt Count 166 L (182-369) K/mm3 MPV 11.3 (9.4-12.3) fl Neut % (Auto) 72.3 H (34.0-71.1) % Lymph % (Auto) 20.1 (19.3-51.7) % [place] % (Auto) 6.9 (4.7-12.5) % Eos % (Auto) 0.3 L (0.7-5.8) Baso % (Auto) 0.3 (0.1-1.2) % Neut # (Auto) 5.04 (1.56-6.13) K/mm3 Lymph # (Auto) 1.40 (1.18-3.74) K/mm3 [place] # (Auto) 0.48 H (0.24-0.36) K/mm3 Eos # (Auto) 0.02 L (0.04-0.36) K/mm3 Baso # (Auto) 0.02 (0.01-0.08) K/mm3 SARS-CoV-2 RNA (MARIA L) Negative (NEGATIVE) Med Orders - Current: Current Medications Calcium Carbonate/Glycine (Calcium Carbonate 500 Mg Tab.Chew) 1,000 mg PO Q2H PRN PRN Reason: Indigestion Lactated Ringer's (Ringers, Lactated) 1,000 mls @ 100 mls/hr IV ASDIRECTED [facility] Last Admin: 01/23/21 10:53 Dose: 999 mls/hr Documented by: Oxytocin/Lactated Ringer's (Pitocin In Lr 20 Units/1,000 Ml) 20 unit in 1,000 mls @ 500 mls/hr IV .CONTINUOUS WEN Last Admin: 01/23/21 13:16 Dose: 500 mls/hr Documented by: Nalbuphine HCl (Nalbuphine 10 Mg/1 Ml Vial) 10 mg IVPUSH Q2H PRN PRN Reason: Pain Ondansetron HCl (Ondansetron 4 Mg/2 Ml Sdv) 4 mg IVPUSH Q4H PRN PRN Reason: Nausea/Vomiting Sodium Chloride (Sodium Chloride 0.9% 10 Ml Syringe) 10 ml FLUSH ASDIRECTED PRN PRN Reason: Keep Vein Open - Exam General: Alert, Oriented HEENT: Pupils Equal, Mucous Membr. Moist/[place] Neck: Supple Lungs: Clear to Auscultation, Normal Respiratory Effort Cardiovascular: Regular Rate, Regular Rhythm GI/Abdominal Exam: Normal Bowel Sounds, Soft (Female) Exam: Normal External Exam Extremities: Normal Inspection, Non-Tender, No Pedal Edema, Normal Capillary Refill Skin: Warm, Dry, Intact Neurological: No New Focal Deficit Psy/Mental Status: Alert, Normal Affect, Normal Mood - Problem List & Annotations (1) 40 weeks gestation of SNOMED Code(s): 81809466 Code(s): Z3A.40 - 40 WEEKS GESTATION OF Status: Acute Current Visit: Yes (2) Encounter for full-term uncomplicated delivery SNOMED Code(s): 630094560 Code(s): O80 - ENCOUNTER FOR FULL-TERM UNCOMPLICATED DELIVERY Status: Acute Current Visit: Yes - Problem List Review Problem List Initiated/Reviewed/Updated: No - My Orders Last 24 Hours: My Active Orders 01/23/21 10:05 Non Stress Test [RC] PER UNIT ROUTINE Vital Signs [RC] PER UNIT ROUTINE Resuscitation Status Routine 01/23/21 10:24 Patient Status [ADT] Routine Activity as Tolerated [RC] PFP Communication Order [RC] ASDIRECTED Notify Provider [RC] PFP Notify Provider [RC] PRN Peripheral IV Care [RC] . DIRECTED BLOOD BANK HOLD SPECIMEN [BBK] Stat Calcium Carbonate [Tums] 1,000 mg PO Q2H PRN Nalbuphine [Nubain] 10 mg IVPUSH Q2H PRN Ondansetron [Zofran] 4 mg IVPUSH Q4H PRN Sodium Chloride 0.9% [Saline Flush] 10 ml FLUSH ASDIRECTED PRN Electronic Heart Tones Ext w TOCO [WOMSER] Routine Electronic Heart Tones Internal [WOMSER] Per Unit Routine Peripheral IV Insertion Adult [OM.PC] Routine 01/23/21 10:30 RAPID PLASMA REAGIN,RPR [CHEM] Routine Lactated Ringers [Ringers, Lactated] 1,000 ml IV ASDIRECTED Oxytocin/Lactated Ringers [Pitocin in LR 20 Units/1,000 ML] 20 unit in 1,000 ml IV .CONTINUOUS 01/23/21 Lunch Regular Diet [DIET] - Plan Plan:: Uncomplicated delivery
[2021-01-23] MEDS ORDERED: Benzocaine/Menthol 20%-0.5% Spray 56 GM Canister TOP PRN (13:24)
[2021-01-23] MEDS ORDERED: Acetaminophen 325 MG Tab PO PRN (13:24)
[2021-01-23] MEDS ORDERED: Witch Hazel Medicated Pads 40/Jar TOP PRN (13:24)
[2021-01-23] MEDS ORDERED: Docusate Sodium 100 MG Cap PO PRN (13:24)
[2021-01-23] MEDS: Ibuprofen 600 MG Tab PO PRN ×2 (14:21→21:41)
[2021-01-24] MEDS: Ibuprofen 600 MG Tab PO PRN (06:17)
--- NOTE | 2021-01-24 10:17 | PCM.DCSUM1 ---
Discharge Summary - Hospital Course Free Text/Narrative:: [facility] L/[facility] Delivery Note Patient Name: MIKAYLA CARRILLO Date of : 89 Patient Status: Inpatient Attending Provider: Praveen Gonzales Date: 01/23/21 13:18 Initialization Date: 01/23/21 13:18 L & D Note - General Info Date of Service: 01/23/21 Mother's Due Date: 01/23/21 - Delivery Note Labor: Spontaneous, Augmented by ARM Delivery Outcome: Livebirth (Female liveborn 01/23/2021 at 1303 hrs. weight 3380 g / 7 pounds 7.2 ounces 8/9 FLORA three-vessel cord) Infant Delivery Method: Spontaneous Vaginal Delivery-Single Infant Delivery Mode: Spontaneous Presentation: Right Occiput Anterior (FLORA) Nuchal Cord: None Prep: Povidone-Iodine (Betadine Anesthesia Type: None Episiotomy Type: None Laceration: None Placenta: Intact, Spontaneous (01/23/2021 at 1307 hrs. examined placenta membranes and placenta intact) Cord: 3 Vessels Estimated Blood Loss: 250 Resuscitation Needed: Yes Provider: Praveen Gonzales Score 1 min: 8 Score 5 min: 9 Induction Criteria - Augmentation Estimated Pelvis: Reports: Adequate Weight Estimated:: Reports: AGA Reassuring Monitoring Strip: Yes Absence of Tachy Systole: Yes - General Info Date of Service: 01/23/21 Functional Status: Reports: Pain Controlled - Review of Systems General: Reports: No Symptoms HEENT: Reports: No Symptoms Pulmonary: Reports: No Symptoms Cardiovascular: Reports: No Symptoms Gastrointestinal: Reports: No Symptoms Genitourinary: Reports: No Symptoms Musculoskeletal: Reports: No Symptoms Skin: Reports: No Symptoms Neurological: Reports: No Symptoms Psychiatric: Reports: No Symptoms - Patient Data Vitals - Most Recent: Last Vital Signs Temp 98.2 F 01/23/21 10:05 Pulse 102 H 01/23/21 10:05 Resp 14 01/23/21 10:05 BP 120/84 01/23/21 10:05 Pulse Ox 100 01/23/21 10:05 Weight - Most Recent: 168 lb Lab Results Last 24 Hours: Laboratory Results - last 24 hr 01/23/21 01/23/21 Range/Units 10:22 10:30 WBC 6.97 (3.98-10.04) K/mm3 RBC 4.52 (3.98-5.22) M/mm3 Hgb 13.5 D (11.2-15.7) gm/dl Hct 40.2 (34.1-44.9) % MCV 88.9 (79.4-94.8) fl MCH 29.9 (25.6-32.2) pg MCHC 33.6 (32.2-35.5) g/dl RDW Std Deviation 46.4 H (36.4-46.3) fL Plt Count 166 L (182-369) K/mm3 MPV 11.3 (9.4-12.3) fl Neut % (Auto) 72.3 H (34.0-71.1) % Lymph % (Auto) 20.1 (19.3-51.7) % [place] % (Auto) 6.9 (4.7-12.5) % Eos % (Auto) 0.3 L (0.7-5.8) Baso % (Auto) 0.3 (0.1-1.2) % Neut # (Auto) 5.04 (1.56-6.13) K/mm3 Lymph # (Auto) 1.40 (1.18-3.74) K/mm3 [place] # (Auto) 0.48 H (0.24-0.36) K/mm3 Eos # (Auto) 0.02 L (0.04-0.36) K/mm3 Baso # (Auto) 0.02 (0.01-0.08) K/mm3 SARS-CoV-2 RNA (MARIA L) Negative (NEGATIVE) Med Orders - Current: Current Medications Calcium Carbonate/Glycine (Calcium Carbonate 500 Mg Tab.Chew) 1,000 mg PO Q2H PRN PRN Reason: Indigestion Lactated Ringer's (Ringers, Lactated) 1,000 mls @ 100 mls/hr IV ASDIRECTED [facility] Last Admin: 01/23/21 10:53 Dose: 999 mls/hr Documented by: Oxytocin/Lactated Ringer's (Pitocin In Lr 20 Units/1,000 Ml) 20 unit in 1,000 mls @ 500 mls/hr IV .CONTINUOUS WEN Last Admin: 01/23/21 13:16 Dose: 500 mls/hr Documented by: Nalbuphine HCl (Nalbuphine 10 Mg/1 Ml Vial) 10 mg IVPUSH Q2H PRN PRN Reason: Pain Ondansetron HCl (Ondansetron 4 Mg/2 Ml Sdv) 4 mg IVPUSH Q4H PRN PRN Reason: Nausea/Vomiting Sodium Chloride (Sodium Chloride 0.9% 10 Ml Syringe) 10 ml FLUSH ASDIRECTED PRN PRN Reason: Keep Vein Open - Exam General: Alert, Oriented HEENT: Pupils Equal, Mucous Membr. Moist/Harrison Neck: Supple Lungs: Clear to Auscultation, Normal Respiratory Effort Cardiovascular: Regular Rate, Regular Rhythm GI/Abdominal Exam: Normal Bowel Sounds, Soft (Female) Exam: Normal External Exam Extremities: Normal Inspection, Non-Tender, No Pedal Edema, Normal Capillary Refill Skin: Warm, Dry, Intact Neurological: No New Focal Deficit Psy/Mental Status: Alert, Normal Affect, Normal Mood - Problem List & Annotations (1) 40 weeks gestation of SNOMED Code(s): 01634889 Code(s): Z3A.40 - 40 WEEKS GESTATION OF Status: Acute Current Visit: Yes (2) Encounter for full-term uncomplicated delivery SNOMED Code(s): 042758448 Code(s): O80 - ENCOUNTER FOR FULL-TERM UNCOMPLICATED DELIVERY Status: Acute Current Visit: Yes - Problem List Review Problem List Initiated/Reviewed/Updated: No - My Orders Last 24 Hours: My Active Orders 01/23/21 10:05 Non Stress Test [RC] PER UNIT ROUTINE Vital Signs [RC] PER UNIT ROUTINE Resuscitation Status Routine 01/23/21 10:24 Patient Status [ADT] Routine Activity as Tolerated [RC] PFP Communication Order [RC] ASDIRECTED Notify Provider [RC] PFP Notify Provider [RC] PRN Peripheral IV Care [RC] . DIRECTED BLOOD BANK HOLD SPECIMEN [BBK] Stat Calcium Carbonate [Tums] 1,000 mg PO Q2H PRN Nalbuphine [Nubain] 10 mg IVPUSH Q2H PRN Ondansetron [Zofran] 4 mg IVPUSH Q4H PRN Sodium Chloride 0.9% [Saline Flush] 10 ml FLUSH ASDIRECTED PRN Electronic Heart Tones Ext w TOCO [WOMSER] Routine Electronic Heart Tones Internal [WOMSER] Per Unit Routine Peripheral IV Insertion Adult [OM.PC] Routine 01/23/21 10:30 RAPID PLASMA REAGIN,RPR [CHEM] Routine Lactated Ringers [Ringers, Lactated] 1,000 ml IV ASDIRECTED Oxytocin/Lactated Ringers [Pitocin in LR 20 Units/1,000 ML] 20 unit in 1,000 ml IV .CONTINUOUS 01/23/21 Lunch Regular Diet [DIET] - Plan Plan:: Uncomplicated delivery HPI Initial Comments: [facility] L/D Delivery Note Patient Name: MIKAYLA CARRILLO Date of : 89 Patient Status: Inpatient Attending Provider: Praveen Gonzales Date: 01/23/21 13:18 Initialization Date: 01/23/21 13:18 L & D Note - General Info Date of Service: 01/23/21 Mother's Due Date: 01/23/21 - Delivery Note Labor: Spontaneous, Augmented by ARM Delivery Outcome: Livebirth (Female liveborn 01/23/2021 at 1303 hrs. weight 3380 g / 7 pounds 7.2 ounces 8/9 FLORA three-vessel cord) Infant Delivery Method: Spontaneous Vaginal Delivery-Single Infant Delivery Mode: Spontaneous Presentation: Right Occiput Anterior (FLORA) Nuchal Cord: None Prep: Povidone-Iodine (Betadine Anesthesia Type: None Episiotomy Type: None Laceration: None Placenta: Intact, Spontaneous (01/23/2021 at 1307 hrs. examined placenta membranes and placenta intact) Cord: 3 Vessels Estimated Blood Loss: 250 Resuscitation Needed: Yes Provider: Praveen Gonzales Score 1 min: 8 Score 5 min: 9 Induction Criteria - Augmentation Estimated Pelvis: Reports: Adequate Weight Estimated:: Reports: AGA Reassuring Monitoring Strip: Yes Absence of Tachy Systole: Yes - General Info Date of Service: 01/23/21 Functional Status: Reports: Pain Controlled - Review of Systems General: Reports: No Symptoms HEENT: Reports: No Symptoms Pulmonary: Reports: No Symptoms Cardiovascular: Reports: No Symptoms Gastrointestinal: Reports: No Symptoms Genitourinary: Reports: No Symptoms Musculoskeletal: Reports: No Symptoms Skin: Reports: No Symptoms Neurological: Reports: No Symptoms Psychiatric: Reports: No Symptoms - Patient Data Vitals - Most Recent: Last Vital Signs Temp 98.2 F 01/23/21 10:05 Pulse 102 H 01/23/21 10:05 Resp 14 01/23/21 10:05 BP 120/84 01/23/21 10:05 Pulse Ox 100 01/23/21 10:05 Weight - Most Recent: 168 lb Lab Results Last 24 Hours: Laboratory Results - last 24 hr 01/23/21 01/23/21 Range/Units 10:22 10:30 WBC 6.97 (3.98-10.04) K/mm3 RBC 4.52 (3.98-5.22) M/mm3 Hgb 13.5 D (11.2-15.7) gm/dl Hct 40.2 (34.1-44.9) % MCV 88.9 (79.4-94.8) fl MCH 29.9 (25.6-32.2) pg MCHC 33.6 (32.2-35.5) g/dl RDW Std Deviation 46.4 H (36.4-46.3) fL Plt Count 166 L (182-369) K/mm3 MPV 11.3 (9.4-12.3) fl Neut % (Auto) 72.3 H (34.0-71.1) % Lymph % (Auto) 20.1 (19.3-51.7) % [place] % (Auto) 6.9 (4.7-12.5) % Eos % (Auto) 0.3 L (0.7-5.8) Baso % (Auto) 0.3 (0.1-1.2) % Neut # (Auto) 5.04 (1.56-6.13) K/mm3 Lymph # (Auto) 1.40 (1.18-3.74) K/mm3 [place] # (Auto) 0.48 H (0.24-0.36) K/mm3 Eos # (Auto) 0.02 L (0.04-0.36) K/mm3 Baso # (Auto) 0.02 (0.01-0.08) K/mm3 SARS-CoV-2 RNA (MARIA L) Negative (NEGATIVE) Med Orders - Current: Current Medications Calcium Carbonate/Glycine (Calcium Carbonate 500 Mg Tab.Chew) 1,000 mg PO Q2H PRN PRN Reason: Indigestion Lactated Ringer's (Ringers, Lactated) 1,000 mls @ 100 mls/hr IV ASDIRECTED [facility] Last Admin: 01/23/21 10:53 Dose: 999 mls/hr Documented by: Oxytocin/Lactated Ringer's (Pitocin In Lr 20 Units/1,000 Ml) 20 unit in 1,000 mls @ 500 mls/hr IV .CONTINUOUS [facility] Last Admin: 01/23/21 13:16 Dose: 500 mls/hr Documented by: Nalbuphine HCl (Nalbuphine 10 Mg/1 Ml Vial) 10 mg IVPUSH Q2H PRN PRN Reason: Pain Ondansetron HCl (Ondansetron 4 Mg/2 Ml Sdv) 4 mg IVPUSH Q4H PRN PRN Reason: Nausea/Vomiting Sodium Chloride (Sodium Chloride 0.9% 10 Ml Syringe) 10 ml FLUSH ASDIRECTED PRN PRN Reason: Keep Vein Open - Exam General: Alert, Oriented HEENT: Pupils Equal, Mucous Membr. Moist/[place]arrison Neck: Supple Lungs: Clear to Auscultation, Normal Respiratory Effort Cardiovascular: Regular Rate, Regular Rhythm GI/Abdominal Exam: Normal Bowel Sounds, Soft (Female) Exam: Normal External Exam Extremities: Normal Inspection, Non-Tender, No Pedal Edema, Normal Capillary Refill Skin: Warm, Dry, Intact Neurological: No New Focal Deficit Psy/Mental Status: Alert, Normal Affect, Normal Mood - Problem List & Annotations (1) 40 weeks gestation of SNOMED Code(s): 84794796 Code(s): Z3A.40 - 40 WEEKS GESTATION OF Status: Acute Current Visit: Yes (2) Encounter for full-term uncomplicated delivery SNOMED Code(s): 589640986 Code(s): O80 - ENCOUNTER FOR FULL-TERM UNCOMPLICATED DELIVERY Status: Acute Current Visit: Yes - Problem List Review Problem List Initiated/Reviewed/Updated: No - My Orders Last 24 Hours: My Active Orders 01/23/21 10:05 Non Stress Test [RC] PER UNIT ROUTINE Vital Signs [RC] PER UNIT ROUTINE Resuscitation Status Routine 01/23/21 10:24 Patient Status [ADT] Routine Activity as Tolerated [RC] PFP Communication Order [RC] ASDIRECTED Notify Provider [RC] PFP Notify Provider [RC] PRN Peripheral IV Care [RC] . DIRECTED BLOOD BANK HOLD SPECIMEN [BBK] Stat Calcium Carbonate [Tums] 1,000 mg PO Q2H PRN Nalbuphine [Nubain] 10 mg IVPUSH Q2H PRN Ondansetron [Zofran] 4 mg IVPUSH Q4H PRN Sodium Chloride 0.9% [Saline Flush] 10 ml FLUSH ASDIRECTED PRN Electronic Heart Tones Ext w TOCO [WOMSER] Routine Electronic Heart Tones Internal [WOMSER] Per Unit Routine Peripheral IV Insertion Adult [OM.PC] Routine 01/23/21 10:30 RAPID PLASMA REAGIN,RPR [CHEM] Routine Lactated Ringers [Ringers, Lactated] 1,000 ml IV ASDIRECTED Oxytocin/Lactated Ringers [Pitocin in LR 20 Units/1,000 ML] 20 unit in 1,000 ml IV .CONTINUOUS 01/23/21 Lunch Regular Diet [DIET] - Plan Plan:: Uncomplicated delivery Brief History: [facility] . L/D Delivery Note. Patient Name: MIKAYLA CARRILLO Record Number: [id number]. Date of : 89Patient Status: Inpatient. Attending Provider: Praveen Gonzales Number: [id number]. Date: 01/23/21 13:18Initialization Date: 01/23/21 13:18. L & D Note. - General Info. Date of Service: 01/23/21. Mother's Due Date: 01/23/21. - Delivery Note. Labor: Spontaneous, Augmented by ARM. Delivery Outcome: Livebirth (Female liveborn 01/23/2021 at 1303 hrs. weight 3380 g / 7 pounds 7.2 ounces 8/9 FLORA three-vessel cord). Infant Delivery Method: Spontaneous Vaginal Delivery-Single. Infant Delivery Mode: Spontaneous. Presentation: Right Occiput Anterior (FLORA). Nuchal Cord: None. Prep: Povidone-Iodine (Betadine. Anesthesia Type: None. Episiotomy Type: None. Laceration: None. Placenta: Intact, Spontaneous (01/23/2021 at 1307 hrs. examined placenta membranes and placenta intact). Cord: 3 Vessels. Estimated Blood Loss: 250. Resuscitation Needed: Yes. Provider: Praveen Gonzales. Score 1 min: 8. Score 5 min: 9. Induction Criteria. - Augmentation. Estimated Pelvis: Reports: Adequate. Weight Estimated:: Reports: AGA. Reassuring Monitoring Strip: Yes. Absence of Tachy Systole: Yes. - General Info. Date of Service: 01/23/21. Functional Status: Reports: Pain Controlled. - Review of Systems. General: Reports: No Symptoms. HEENT: Reports: No Symptoms. Pulmonary: Reports: No Symptoms. Cardiovascular: Reports: No Symptoms. Gastrointestinal: Reports: No Symptoms. Genitourinary: Reports: No Symptoms. Musculoskeletal: Reports: No Symptoms. Skin: Reports: No Symptoms. Neurological: Reports: No Symptoms. Psychiatric: Reports: No Symptoms. - Patient Data. Vitals - Most Recent: Last Vital Signs. Temp 98.2 F 01/23/21 10:05. Pulse 102 H 01/23/21 10:05. Resp 14 01/23/21 10:05. BP 120/84 01/23/21 10:05. Pulse Ox 100 01/23/21 10:05. Weight - Most Recent: 168 lb. Lab Results Last 24 Hours: Laboratory Results - last 24 hr. 01/23/2103Range/Units. 10:2210:30. WBC 6.97 (3.98-10.04) K/mm3. RBC 4.52 (3.98-5.22) M/mm3. Hgb 13.5 D (11.2-15.7) gm/dl. Hct 40.2 (34.1-44.9) %. MCV 88.9 (79.4-94.8) fl. MCH 29.9 (25.6-32.2) pg. MCHC 33.6 (32.2-35.5) g/dl. RDW Std Deviation 46.4 H (36.4-46.3) fL. Plt Count 166 L (182-369) K/mm3. MPV 11.3 (9.4-12.3) fl. Neut % (Auto) 72.3 H (34.0-71.1) %. Lymph % (Auto) 20.1 (19.3-51.7) %. [place] % (Auto) 6.9 (4.7-12.5) %. Eos % (Auto) 0.3 L (0.7-5.8). Baso % (Auto) 0.3 (0.1-1.2) %. Neut # (Auto) 5.04 (1.56-6.13) K/mm3. Lymph # (Auto) 1.40 (1.18-3.74) K/mm3. [place] # (Auto) 0.48 H (0.24- 0.36) K/mm3. Eos # (Auto) 0.02 L (0.04-0.36) K/mm3. Baso # (Auto) 0.02 (0.01-0.08) K/mm3. SARS-CoV-2 RNA (MARIA L) Negative (NEGATIVE). Med Orders - Current: Current Medications. Calcium Carbonate/Glycine (Calcium Carbonate 500 Mg Tab.Chew) 1,000 mg PO Q2H PRN. PRN Reason: Indigestion. Lactated Ringer's (Ringers, Lactated) 1,000 mls @ 100 mls/hr IV ASDIRECTED WEN. Last Admin: 01/23/21 10:53 Dose: 999 mls/hr. Documented by: Oxytocin/Lactated Ringer's (Pitocin In Lr 20 Units/1,000 Ml) 20 unit in 1,000 mls @ 500 mls/hr IV .CONTINUOUS WEN. Last Admin: 01/23/21 13:16 Dose: 500 mls/hr. Documented by: Nalbuphine HCl (Nalbuphine 10 Mg/1 Ml Vial) 10 mg IVPUSH Q2H PRN. PRN Reason: Pain. Ondansetron HCl (Ondansetron 4 Mg/2 Ml Sdv) 4 mg IVPUSH Q4H PRN. PRN Reason: Nausea/Vomiting. Sodium Chloride (Sodium Chloride 0.9% 10 Ml Syringe) 10 ml FLUSH ASDIRECTED PRN. PRN Reason: Keep Vein Open. - Exam. General: Alert, Oriented. HEENT: Pupils Equal, Mucous Membr. Moist/Harrison. Neck: Supple. Lungs: Clear to Auscultation, Normal Respiratory Effort. Cardiovascular: Regular Rate, Regular Rhythm. GI/Abdominal Exam: Normal Bowel Sounds, Soft. (Female) Exam: Normal External Exam. Extremities: Normal Inspection, Non- Tender, No Pedal Edema, Normal Capillary Refill. Skin: Warm, Dry, Intact. Neurological: No New Focal Deficit. Psy/Mental Status: Alert, Normal Affect, Normal Mood. - Problem List & Annotations. (1) 40 weeks gestation of . SNOMED Code(s): 30031729. Code(s): Z3A.40 - 40 WEEKS GESTATION OF Status: Acute Current Visit: Yes. (2) Encounter for full-term uncomplicated delivery. SNOMED Code(s): 687952928. Code(s): O80 - ENCOUNTER FOR FULL-TERM UNCOMPLICATED DELIVERY Status: Acute Current Visit: Yes. - Problem List Review. Problem List Initiated/Reviewed/Updated: No. - My Orders. Last 24 Hours: My Active Orders. 01/23/21 10:05. Non Stress Test [RC] PER UNIT ROUTINE. Vital Signs [RC] PER UNIT ROUTINE. Resuscitation Status Routine. 01/23/21 10:24. Patient Status [ADT] Routine. Activity as Tolerated [RC] PFP. Communication Order [RC] ASDIRECTED. Notify Provider [RC] PFP. Notify Provider [RC] PRN. Peripheral IV Care [RC] . DIRECTED. BLOOD BANK HOLD SPECIMEN [BBK] Stat. Calcium Carbonate [Tums] 1,000 mg PO Q2H PRN. Nalbuphine [Nubain] 10 mg IVPUSH Q2H PRN. Ondansetron [Zofran] 4 mg IVPUSH Q4H PRN. Sodium Chloride 0.9% [Saline Flush] 10 ml FLUSH ASDIRECTED PRN. Electronic Heart Tones Ext w TOCO [WOMSER] Routine. Electronic Heart Tones Internal [WOMSER] Per Unit Routine. Peripheral IV Insertion Adult [OM.PC] Routine. 01/23/21 10:30. RAPID PLASMA REAGIN,RPR [CHEM] Routine. Lactated Ringers [Ringers, Lactated] 1,000 ml IV ASDIRECTED. Oxytocin/Lactated Ringers [Pitocin in LR 20 Units/1,000 ML] 20 unit in 1,000 ml IV .CONTINUOUS. 01/23/21 Lunch. Regular Diet [DIET]. - Plan. Plan:: Uncomplicated delivery Diagnosis: Stroke: No - Discharge Data Discharge Date: 01/24/21 Discharge Disposition: Home, Self-Care 01 Condition: Good - Referral to Home Health Primary Care Physician: Hieu Stevens MD - Discharge Diagnosis/Problem(s) (1) 40 weeks gestation of SNOMED Code(s): 83864989 ICD Code: Z3A.40 - 40 WEEKS GESTATION OF Status: Acute Current Visit: Yes (2) Encounter for full-term uncomplicated delivery SNOMED Code(s): 290028185 ICD Code: O80 - ENCOUNTER FOR FULL-TERM UNCOMPLICATED DELIVERY Status: Acute Current Visit: Yes - Patient Summary/Data Complications: None Consults: None Hospital Course: Uneventful - Patient Instructions Diet: Usual Diet as Tolerated Driving: Do Not Drive (X48 hours) Showering/Bathing: May Shower Notify Provider of: Fever, Increased Pain, Swelling and Redness, Drainage, Nausea and/or Vomiting - Discharge Plan *PRESCRIPTION DRUG MONITORING PROGRAM REVIEWED*: Not Applicable *COPY OF PRESCRIPTION DRUG MONITORING REPORT IN PATIENT ALEJANDRA: Not Applicable Prescriptions/Med Rec: Acetaminophen 500 mg PO Q6H #50 capsule Home Medications: Home Meds Pnv No.95/Ferrous Fum/Folic AC [ Tablet] 1 tab PO DAILY 11/11/18 [History] Acetaminophen 500 mg PO Q6H #50 capsule 01/24/21 [Rx] Benzocaine/Menthol [Dermoplast Pain Relief [place]] 1 spray TOP ASDIRECTED PRN canister 01/24/21 [Rx] Ibuprofen [Motrin] 600 mg PO Q6H PRN tablet 01/24/21 [Rx] witch Che [Tucks] 1 pad TOP ASDIRECTED PRN pad 01/24/21 [Rx] Referrals: Hieu Stevens MD [Primary Care Provider] - (Monday to make an appointment to see Dr. Stevens in 2 weeks) - Discharge Summary/Plan Comment DC Time >30 min.: No - Patient Data Vitals - Most Recent: Last Vital Signs Temp 97.0 F 01/24/21 09:10 Pulse 79 01/24/21 09:10 Resp 14 01/24/21 09:10 BP 100/59 L 01/24/21 09:10 Pulse Ox 98 01/24/21 09:10 Weight - Most Recent: 168 lb I&O - Last 24 hours: Intake & Output 01/23/21 01/24/21 01/24/21 22:59 06:59 14:59 Intake Total 1999 Output Total 302 Balance 1698 Lab Results - Last 24 hrs: Laboratory Results - last 24 hr 01/23/21 01/23/21 01/24/21 Range/Units 10:22 10:30 06:01 WBC 6.97 9.97 (3.98-10.04) K/mm3 RBC 4.52 3.91 L (3.98-5.22) M/mm3 Hgb 13.5 D 11.6 D (11.2-15.7) gm/dl Hct 40.2 35.3 (34.1-44.9) % MCV 88.9 90.3 (79.4-94.8) fl MCH 29.9 29.7 (25.6-32.2) pg MCHC 33.6 32.9 (32.2-35.5) g/dl RDW Std Deviation 46.4 H 47.3 H (36.4-46.3) fL Plt Count 166 L 155 L (182-369) K/mm3 MPV 11.3 11.6 (9.4-12.3) fl Neut % (Auto) 72.3 H 71.9 H (34.0-71.1) % Lymph % (Auto) 20.1 20.0 (19.3-51.7) % [place] % (Auto) 6.9 7.3 (4.7-12.5) % Eos % (Auto) 0.3 L 0.4 L (0.7-5.8) Baso % (Auto) 0.3 0.2 (0.1-1.2) % Neut # (Auto) 5.04 7.17 H (1.56-6.13) K/mm3 Lymph # (Auto) 1.40 1.99 (1.18-3.74) K/mm3 [place] # (Auto) 0.48 H 0.73 H (0.24-0.36) K/mm3 Eos # (Auto) 0.02 L 0.04 (0.04-0.36) K/mm3 Baso # (Auto) 0.02 0.02 (0.01-0.08) K/mm3 SARS-CoV-2 RNA (MARIA L) Negative (NEGATIVE) Med Orders - Current: Current Medications Acetaminophen (Acetaminophen 325 Mg Tab) 650 mg PO Q4H PRN PRN Reason: mild pain or fever Benzocaine/Menthol (Benzocaine/Menthol 20%-0.5% [place] 56 Gm Canister) 0 gm TOP ASDIRECTED PRN PRN Reason: Perineal Comfort Measure Last Admin: 01/23/21 14:20 Dose: 1 can Documented by: Docusate Sodium (Docusate Sodium 100 Mg Cap) 100 mg PO BID PRN PRN Reason: Constipation Last Admin: 01/23/21 14:21 Dose: 100 mg Documented by: Ibuprofen (Ibuprofen 600 Mg Tab) 600 mg PO Q4H PRN PRN Reason: Mild pain or fever Last Admin: 01/24/21 06:17 Dose: 600 mg Documented by: Sodium Chloride (Sodium Chloride 0.9% 10 Ml Syringe) 10 ml FLUSH ASDIRECTED PRN PRN Reason: Keep Vein Open Witch Che (Witch Che Medicated Pads 40/Jar) 1 pad TOP ASDIRECTED PRN PRN Reason: Perineal Comfort Measure Last Admin: 01/23/21 14:20 Dose: 1 tub Documented by: Discontinued Medications Calcium Carbonate/Glycine (Calcium Carbonate 500 Mg Tab.Chew) 1,000 mg PO Q2H PRN PRN Reason: Indigestion Lactated Ringer's (Ringers, Lactated) 1,000 mls @ 100 mls/hr IV ASDIRECTED WEN Last Admin: 01/23/21 10:53 Dose: 999 mls/hr Documented by: Oxytocin/Lactated Ringer's (Pitocin In Lr 20 Units/1,000 Ml) 20 unit in 1,000 mls @ 500 mls/hr IV .CONTINUOUS WEN Last Admin: 01/23/21 13:16 Dose: 500 mls/hr Documented by: Nalbuphine HCl (Nalbuphine 10 Mg/1 Ml Vial) 10 mg IVPUSH Q2H PRN PRN Reason: Pain Ondansetron HCl (Ondansetron 4 Mg/2 Ml Sdv) 4 mg IVPUSH Q4H PRN PRN Reason: Nausea/Vomiting Sodium Chloride (Sodium Chloride 0.9% 10 Ml Syringe) 10 ml FLUSH ASDIRECTED PRN PRN Reason: Keep Vein Open
== END 2021-01-24 14:15 | disposition home or self-care (01) | DRG 560 ==
LOC: JD.OBCHECK 09:52 → JD.OB 10:24 → OBSVTOIN 13:03 → JD.OB 13:04
PROVIDERS: ADMIT Obstetrics & Gynecology; ATTEND Obstetrics & Gynecology
PROC: 10E0XZZ Delivery of Products of Conception, External Approach (ICD-10-PCS; principal; 2021-01-23)
DX: O48.0 Post-term pregnancy (principal); Z3A.40 40 weeks gestation of pregnancy; Z37.0 Single live birth; Z20.822 Contact with and (suspected) exposure to COVID-19
CPT/HCPCS: 36415; 59025; 59409; 85025; 86592; A9270-GY; J2590; J7120; U0002

== ENCOUNTER 2022-12-31 16:30 | Inpatient (IN) | payer BC ==
[2022-12-31] MEDS ORDERED: Nalbuphine 10 MG/0.5 ML Syringe IVPUSH PRN (16:56)
[2022-12-31] MEDS ORDERED: Sodium Chloride 0.9% 10 ML Syringe FLUSH PRN (16:56)
[2022-12-31] MEDS ORDERED: Oxytocin/Lactated Ringers 10 UNIT/1,000 ML BAG IV SCH ×2 (17:00→19:00)
[2022-12-31] MEDS: Lactated Ringers 1,000 ML IV SCH ×2 (17:33→18:42)
[2022-12-31] MEDS ORDERED: fentaNYL 100 MCG/2 ML SDV EPIDUR PRN (18:22)
[2022-12-31] MEDS ORDERED: Bupivacaine/fentaNYL/NS 100 ML Bag EPIDUR PRN (18:22)
[2022-12-31] MEDS ORDERED: ePHEDrine 50 MG/ML SDV IVPUSH PRN (18:22)
[2022-12-31] MEDS ORDERED: diphenhydrAMINE 50 MG/ML SDV IVPUSH PRN (18:22)
[2022-12-31] MEDS ORDERED: Ropivacaine 0.2% PF 2 MG/ML 20 ML SDV ONE (19:00)
[2022-12-31] MEDS ORDERED: Docusate Sodium 100 MG Cap PO PRN (20:27)
[2022-12-31] MEDS ORDERED: Benzocaine/Menthol 20%-0.5% Spray 78 GM Cannister TOP PRN (20:27)
[2022-12-31] MEDS ORDERED: Witch Hazel Medicated Pads 40/Jar TOP PRN (20:27)
[2022-12-31] MEDS: Acetaminophen 325 MG Tab PO PRN (20:53)
[2022-12-31] MEDS: Ibuprofen 600 MG Tab PO PRN (20:54)
[2022-12-31] MEDS ORDERED: Sodium Chloride 0.9% 10 ML Syringe FLUSH SCH (21:00)
[2023-01-01] MEDS: Ibuprofen 600 MG Tab PO PRN ×3 (04:17→20:14)
[2023-01-01] MEDS: Ferrous Sulfate 324 MG Tab.EC PO SCH (08:07)
[2023-01-01] MEDS: Acetaminophen 325 MG Tab PO PRN (08:07)
[2023-01-01] MEDS: Prenatal Multivitamin with Calcium/Folic Acid/Iron Tab PO SCH (08:07)
[2023-01-02] MEDS: Prenatal Multivitamin with Calcium/Folic Acid/Iron Tab PO SCH (11:26)
[2023-01-02] MEDS: Ferrous Sulfate 324 MG Tab.EC PO SCH (11:26)
== END 2023-01-02 11:07 | disposition home or self-care (01) | DRG 560 ==
LOC: JD.OBCHECK 16:30 → JD.OB 16:31 → OBSVTOIN 16:56 → JD.OBCHECK 16:56 → JD.OB 16:56
PROVIDERS: ADMIT Obstetrics & Gynecology; ATTEND Obstetrics & Gynecology
PROC: 10E0XZZ Delivery of Products of Conception, External Approach (ICD-10-PCS; principal; 2022-12-31)
PROC: 10907ZC Drainage of Amniotic Fluid, Therapeutic from Products of Conception, Via Natural or Artificial Opening (ICD-10-PCS; 2022-12-31)
PROC: 3E0R3BZ Introduction of Anesthetic Agent into Spinal Canal, Percutaneous Approach (ICD-10-PCS; 2022-12-31)
PROC: 00HU33Z Insertion of Infusion Device into Spinal Canal, Percutaneous Approach (ICD-10-PCS; 2022-12-31)
DX: O80 Encounter for full-term uncomplicated delivery (principal); Z37.0 Single live birth; Z3A.39 39 weeks gestation of pregnancy; Z86.16 Personal history of COVID-19
CPT/HCPCS: 01967; 36415; 59025; 59409; 85025; 86592; A9270-GY; J2590; J2795; J3490; J7120